=== PATIENT | male | born 1940 | race Caucasian/White ===

== ENCOUNTER 2016-11-13 13:54 | Inpatient (IN) | payer BC, OTHER ==
[~2016-11-13] VITALS: Ht 170.2 cm; Wt 57.0 kg
[~2016-11-13 13:54] MED LIST: ALEN70TA2 PO; DONE10TA12 PO
[2016-11-13] MEDS ORDERED: SODIUM CHLORIDE 0.9% 1000ML 1,000 ML IV STA (14:04)
--- NOTE | 2016-11-13 14:40 | EMERGENCY ROOM VISIT NOTE ---
History Report prepared by Dania: Melo Glass Under the Supervision of: Dr. Solis Greer M.D. First contact with patient: 14:03 Chief Complaint: FALL Stated Complaint: ALTERED MENTAL STATUS History of Present Illness The patient is a 76 year old male who presents to the Emergency Room following a falling episode that occurred at an unknown time. Per the patient's family the patient was last seen behaving at baseline last night. The patient was found laying on the floor early this afternoon and was unresponsive. He has not spoken since the fall, but has been moving his extremities intermittently. Per the patient's family, they noticed a bump on the patient's right forehead and a small amount of blood running down the right side of his head. The patient does have a history of Alzheimer's and has fallen in the past. The patient denies head pain, neck pain, abdominal pain, and extremity pain. However, this review is limited due to the mental status of the patient. Source of History: patient, family History Limited By: AMS Position: other (Global) Quality: other (Fall) Associated Symptoms: No abdominal pain, No headache Note: Patient was found with an injury to the right side of the head. Review of Systems ROS is limited due to the patient's current mental status. Past Medical & Surgical Medical Problems: (1) Alzheimers disease (2) Osteoporosis Family History No pertinent family history secondary to patient age. Social History Smoking Status: Unknown if Ever Smoked Alcohol Use: none Marital Status: Housing Status: lives with significant other Occupation Status: retired Current/Historical Medications Scheduled Atorvastatin (Lipitor), 40 MG PO DAILY Donepezil Hydrochloride (Aricept), 10 MG PO DAILY Gabapentin (Neurontin), 600 MG PO HS Melatonin (Melatonin), 6 MG PO HS Memantine (Namenda), 10 MG PO BID Mirtazapine (Remeron), 45 MG PO HS Omeprazole (Prilosec), 20 MG PO DAILYBB Ranitidine Hcl (Zantac), 300 MG PO BID Risperidone (Risperdal), 0.5 MG PO BID Risperidone (Risperdal), 1 MG PO HS Sertraline (Zoloft), 25 MG PO AT 1600 Sertraline (Zoloft), 50 MG PO QAM Scheduled PRN Lorazepam (Ativan), 0.5-1 MG PO Q6 PRN for Anxiety Meclizine Hcl (Meclizine Hcl), 1 TAB PO TID PRN for Dizziness or Vertigo Allergies Coded Allergies: Trazodone and Nefazodone (Verified Allergy, Unknown, NO REACTION LISTED WITH [facility], 11/13/16) Physical Exam Vital Signs Date Time Temp Pulse Resp B/P Pulse Ox O2 Delivery O2 Flow Rate FiO2 11/13/16 15:25 77 16 111/62 98 Room Air 11/13/16 14:29 96 Room Air 11/13/16 14:28 47 11/13/16 14:00 36.4 50 16 131/63 95 Room Air Physical Exam GENERAL: Patient shows demented sensorium, and paucity of speech. well-appearing , in no distress HENT: There is a hematoma and abrasion to the right scalp. Oropharynx unremarkable. EYES: Pupils are small, 2 cm and reactive to light. Normal conjunctiva. Sclera non-icteric. NECK: Supple. No nuchal rigidity. FROM. No JVD. RESPIRATORY: Clear to auscultation. CARDIAC: Bradycardiac rate, with normal rhythm. Extremities warm and well perfused. Pulses equal. ABDOMEN: Soft, non-distended. No tenderness to palpation. No rebound or guarding. No masses. RECTAL: Deferred. MUSCULOSKELETAL: No pain or tenderness in the extremities. Cog wheel like rigidity in the arms. Chest examination reveals no tenderness. The back is symmetrical on inspection without obvious abnormality. There is no CVA tenderness to palpation. No joint edema. LOWER EXTREMITIES: Calves are equal size bilaterally and non-tender. No edema. No discoloration. NEURO: Normal sensorium. No sensory or motor deficits noted. SKIN: No rash or jaundice noted. Medical Decision & Procedures ER Provider Diagnostic Interpretation: Radiology results as stated below per my review and radiologist interpretation: CT OF THE CERVICAL SPINE WITHOUT CONTRAST CLINICAL HISTORY: Fall. Altered mental status. COMPARISON STUDY: No previous studies for comparison. TECHNIQUE: Helical axial images of the cervical spine were obtained without IV contrast. Sagittal and coronal reconstructions were viewed. FINDINGS: This exam is suboptimal due to difficulty with positioning. There is leftward curvature of the cervical spine with rightward tilt of the head which is likely positional. No acute fracture is identified. Craniocervical junction is intact. Moderate multilevel degenerative disc disease is present with severe multilevel facet arthrosis. There is no prevertebral edema or pneumothorax within visualized portions of the lung apices. IMPRESSION: 1. No acute cervical spine fracture. 2. Study compromised due to difficulty positioning. 3. Moderate multilevel degenerative disc disease and severe multilevel facet arthrosis. Electronically signed by: Frandy Cohen M.D. 11/13/2016 4:01 PM Dictated Date/Time: 11/13/2016 3:57 PM CHEST ONE VIEW PORTABLE CLINICAL HISTORY: Fall. Altered mental status. COMPARISON STUDY: Chest radiograph January 20, 2016. FINDINGS: The patient is rotated. Cardiac size is normal. Mediastinal contours are unremarkable on for patient rotation. Skin folds project over the chest. No pneumothorax or pleural effusion is present. Mild left basilar opacity favors atelectasis. IMPRESSION: No acute cardiopulmonary findings. Electronically signed by: Frandy Cohen M.D. 11/13/2016 2:48 PM Dictated Date/Time: 11/13/2016 2:[address] OF THE HEAD WITHOUT CONTRAST CLINICAL HISTORY: Fall. Weakness. COMPARISON STUDY: Head CT January 20, 2016. TECHNIQUE: Helical axial images of the head were obtained without IV contrast. Automated exposure control was utilized for the study. FINDINGS: No acute intracranial hemorrhage, midline shift or mass effect is present. Ventricular system is stable. Ventricular dilatation is unchanged since exam of January 20, 2016. Basilar cisterns are patent. There are no extra axial collections. There are no findings to suggest acute dural sinus thrombosis or acute territorial infarct. There is no calvarial fracture. IMPRESSION: 1. No acute intracranial findings. Stable ventricular dilatation, likely due to atrophy. Normal pressure hydrocephalus is considered less likely. 2. No calvarial fracture. Electronically signed by: Frandy Cohen M.D. 11/13/2016 3:53 PM Dictated Date/Time: 11/13/2016 3:51 PM Laboratory Results 11/13/16 15:00 Red Blood Count 4.40, Mean Corpuscular Volume 94.3, Mean Corpuscular Hemoglobin 32.0, Mean Corpuscular Hemoglobin Concent 34.0, Mean Platelet Volume 9.8, Neutrophils (%) (Auto) 61.4, Lymphocytes (%) (Auto) 23.0, Monocytes (%) (Auto) 13.9, Eosinophils (%) (Auto) 1.0, Basophils (%) (Auto) 0.4, Neutrophils # (Auto ) 4.90, Lymphocytes # (Auto) 1.83, Monocytes # (Auto) 1.11, Eosinophils # (Auto ) 0.08, Basophils # (Auto) 0.03 11/13/16 15:00 Test 11/13/16 14:25 11/13/16 15:00 11/13/16 15:50 Bedside Glucose 106 mg/dl (70-99) White Blood Count 7.97 K/uL (4.8-10.8) Red Blood Count 4.40 M/uL (4.7-6.1) Hemoglobin 14.1 g/dL (14.0-18.0) Hematocrit 41.5 % (42-52) Mean Corpuscular Volume 94.3 fL (80-100) Mean Corpuscular Hemoglobin 32.0 pg (25-34) Mean Corpuscular Hemoglobin Concent 34.0 g/dl (32-36) Platelet Count 279 K/uL (130-400) Mean Platelet Volume 9.8 fL (7.4-10.4) Neutrophils (%) (Auto) 61.4 % Lymphocytes (%) (Auto) 23.0 % Monocytes (%) (Auto) 13.9 % Eosinophils (%) (Auto) 1.0 % Basophils (%) (Auto) 0.4 % Neutrophils # (Auto) 4.90 K/uL (1.4-6.5) Lymphocytes # (Auto) 1.83 K/uL (1.2-3.4) Monocytes # (Auto) 1.11 K/uL (0.11-0.59) Eosinophils # (Auto) 0.08 K/uL (0-0.5) Basophils # (Auto) 0.03 K/uL (0-0.2) RDW Standard Deviation 47.4 fL (36.4-46.3) RDW Coefficient of Variation 13.7 % (11.5-14.5) Immature Granulocyte % (Auto) 0.3 % Immature Granulocyte # (Auto) 0.02 K/uL (0.00-0.02) Prothrombin Time 12.3 SECONDS (9.0-12.0) Prothromb Time International Ratio 1.1 (0.9-1.1) Activated Partial Thromboplast Time 27.1 SECONDS (21.0-31.0) Partial Thromboplastin Ratio 1.0 Anion Gap 7.0 mmol/L (3-11) Estimated GFR () 97.4 Estimated GFR (Non- 84.0 BUN/Creatinine Ratio 27.3 (10-20) Calcium Level 8.8 mg/dl (8.5-10.1) Magnesium Level 2.3 mg/dl (1.8-2.4) Total Bilirubin 0.7 mg/dl (0.2-1) Direct Bilirubin 0.2 mg/dl (0-0.2) Aspartate Amino Transf (AST/SGOT) 26 U/L (15-37) Alanine Aminotransferase (ALT/SGPT) 40 U/L (12-78) Alkaline Phosphatase 98 U/L (45-117) Total Creatine Kinase 89 U/L (39-308) Creatine Kinase MB 1.3 ng/ml (0.5-3.6) Creatine Kinase MB Ratio 1.5 (0-3.0) Troponin I < 0.015 ng/ml (0-0.045) Total Protein 7.2 gm/dl (6.4-8.2) Albumin 3.4 gm/dl (3.4-5.0) Lipase 244 U/L (73-393) Thyroid Stimulating Hormone (TSH) 2.110 uIu/ml (0.300-4.500) Urine Color YELLOW Urine Appearance CLEAR (CLEAR) Urine pH 6.5 (4.5-7.5) Urine Specific [place] 1.027 (1.000-1.030) Urine Protein NEG (NEG) Urine Glucose (UA) NEG (NEG) Urine Ketones NEG (NEG) Urine Occult Blood NEG (NEG) Urine Nitrite NEG (NEG) Urine Bilirubin NEG (NEG) Urine Urobilinogen NEG (NEG) Urine Leukocyte Esterase NEG (NEG) Urine WBC (Auto) 1-5 /hpf (0-5) Urine RBC (Auto) 0-4 /hpf (0-4) Urine Hyaline Casts (Auto) 0 /lpf (0-5) Urine Epithelial Cells (Auto) >30 /lpf (0-5) Urine Bacteria (Auto) NEG (NEG) Urine Renal Epithelial Cells /lpf (0-5) Laboratory results reviewed by me Medications Administered Medications (Trade) Dose Ordered Sig/Evangelina Route Start Time Stop Time Status Last Admin Dose Admin Sodium Chloride (Nss 1000ml) 1,000 ml @ 125 mls/hr Q8H STAT IV 11/13/16 14:04 11/13/16 22:03 11/13/16 14:04 125 MLS/HR ECG Indication: altered mental status Rate (beats per minute): 49 Rhythm: sinus bradycardia Findings: no acute ischemic change, no ectopy ED Course 1402: The patient was evaluated in room A4. A complete history and physical exam was performed. 1404: Ordered Sodium Chloride 1000 mL @ 125 mL/hr IV. 1621: I reevaluated the patient at this time, he is communicating more at this time. He notes he does have a slight headache where he hit his head. 1627: I discussed the case with Estephania Whitten PA-C, she will evaluate the patient for further treatment. 1628: Ordered Tylenol 1000 mg PO. Medical Decision Prior records/ancillary studies reviewed and summarized above. Nursing notes reviewed and agree them. Additional history obtained from family and caregiver. The patient's history was concerning for altered mental status. Differential diagnosis: Etiologies such as concussion, closed head injury, SDH, IPH, infection, hypoglycemia, electrolyte abnormalities, cardiac sources, intracerebral event, toxicologic, neurologic, as well as others were entertained. Physical examination: As above. GCS 14 ER treatment provided: IV Lock Normal saline hydration. On reassessment the patient was doing slightly better. Mental status improved slightly. Diagnostics interpretation by me: ECG: Sinus bradycardia The labs revealed an unremarkable CBC, chemistry panel, cardiac markers except for mild dehydration. Imaging studies: Chest x-ray and CT scans as above The patient may have a concussion. He is doing relatively well at this time. Consultation will be necessary as the patient will need to be observed. Consultation: A consultation was placed with the hospitalist. The case was discussed and diagnostics were reviewed. The patient was evaluated in the ER for further treatment. The chart was completed utilizing [employer] Speech voice recognition software. Grammatical errors, random word insertions, pronoun errors, and incomplete sentences are an occasional consequence of this system due to software limitations, ambient noise, and hardware issues. Any formal questions or concerns about the content, text, or information contained within the body of this dictation should be directly addressed to the physician for clarification. Consults Time Called: 1621 Consulting Physician: Estephania Whitten PA-C Returned Call: 1627 I discussed the case with Estephania Whitten PA-C, she will evaluate the patient for further treatment. Impression Primary Impression: Altered mental status Additional Impressions: Closed head injury Concussion Scribe Attestation The scribe's documentation has been prepared under my direction and personally reviewed by me in its entirety. I confirm that the note above accurately reflects all work, treatment, procedures, and medical decision making performed by me. Departure Information Dispostion Being Evaluated By Hospitalist Referrals Solis Gloria III, M.D. (PCP) Patient Instructions [facility] Problem Qualifiers
--- NOTE | 2016-11-13 14:50 | DIAGNOSTIC IMAGING REPORT ---
CHEST ONE VIEW PORTABLE CLINICAL HISTORY: Fall. Altered mental status. COMPARISON STUDY: Chest radiograph January 20, 2016. FINDINGS: The patient is rotated. Cardiac size is normal. Mediastinal contours are unremarkable on for patient rotation. Skin folds project over the chest. No pneumothorax or pleural effusion is present. Mild left basilar opacity favors atelectasis. IMPRESSION: No acute cardiopulmonary findings. Electronically signed by: Frandy Cohen M.D. 11/13/2016 2:48 PM Dictated Date/Time: 11/13/2016 2:47 PM
[2016-11-13] MEDS ORDERED: LORA-741 PO (15:03)
[2016-11-13] MEDS ORDERED: MELA3TAB12 (15:03)
[2016-11-13] MEDS ORDERED: GABA-113 PO (15:03)
[2016-11-13] MEDS ORDERED: RISP0.5T10 PO (15:03)
[2016-11-13] MEDS ORDERED: MECL1TAB42 PO (15:03)
[2016-11-13 15:13] LABS: BASO % 0.4 %; BASO ABS # 0.03 K/uL (0-0.2); COMPLETE YES; HEMATOCRIT 41.5 % (42-52); IG% 0.3 %; LYMPH ABS # 1.83 K/uL (1.2-3.4); MEAN CELL VOLUME 94.3 fL (80-100); MEAN PLATELET VOLUME 9.8 fL (7.4-10.4); MONO % 13.9 %; NEUT % 61.4 %; PLATELET COUNT 279 K/uL (130-400); WHITE BLOOD COUNT 7.97 K/uL (4.8-10.8)
[2016-11-13 15:24] LABS: INR 1.1 (0.9-1.1); PROTHROMBIN TIME (PATIENT) 12.3 SECONDS (9.0-12.0)
[2016-11-13] MEDS ORDERED: RISP1TAB18 PO (15:24)
[2016-11-13 15:33] LABS: ALT/SGPT 40 U/L (12-78); AST/SGOT 26 U/L (15-37); BLOOD UREA NITROGEN 24 mg/dl (7-18); BUN/CREATININE RATIO 27.3 (10-20); CALCIUM 8.8 mg/dl (8.5-10.1); CARBON DIOXIDE 31 mmol/L (21-32); CHLORIDE 104 mmol/L (98-107); CREATININE 0.88 mg/dl (0.60-1.40); GLUCOSE 98 mg/dl (70-99); MAGNESIUM 2.3 mg/dl (1.8-2.4); POTASSIUM 4.2 mmol/L (3.5-5.1); SODIUM 142 mmol/L (136-145)
[2016-11-13 15:41] LABS: ALKALINE PHOSPHATASE 98 U/L (45-117); CKMB/CK RATIO 1.5 (0-3.0)
--- NOTE | 2016-11-13 15:55 | DIAGNOSTIC IMAGING REPORT ---
CT OF THE HEAD WITHOUT CONTRAST CLINICAL HISTORY: Fall. Weakness. COMPARISON STUDY: Head CT January 20, 2016. TECHNIQUE: Helical axial images of the head were obtained without IV contrast. Automated exposure control was utilized for the study. FINDINGS: No acute intracranial hemorrhage, midline shift or mass effect is present. Ventricular system is stable. Ventricular dilatation is unchanged since exam of January 20, 2016. Basilar cisterns are patent. There are no extra axial collections. There are no findings to suggest acute dural sinus thrombosis or acute territorial infarct. There is no calvarial fracture. IMPRESSION: 1. No acute intracranial findings. Stable ventricular dilatation, likely due to atrophy. Normal pressure hydrocephalus is considered less likely. 2. No calvarial fracture. Electronically signed by: Frandy Cohen M.D. 11/13/2016 3:53 PM Dictated Date/Time: 11/13/2016 3:51 PM
--- NOTE | 2016-11-13 16:02 | DIAGNOSTIC IMAGING REPORT ---
CT OF THE CERVICAL SPINE WITHOUT CONTRAST CLINICAL HISTORY: Fall. Altered mental status. COMPARISON STUDY: No previous studies for comparison. TECHNIQUE: Helical axial images of the cervical spine were obtained without IV contrast. Sagittal and coronal reconstructions were viewed. FINDINGS: This exam is suboptimal due to difficulty with positioning. There is leftward curvature of the cervical spine with rightward tilt of the head which is likely positional. No acute fracture is identified. Craniocervical junction is intact. Moderate multilevel degenerative disc disease is present with severe multilevel facet arthrosis. There is no prevertebral edema or pneumothorax within visualized portions of the lung apices. IMPRESSION: 1. No acute cervical spine fracture. 2. Study compromised due to difficulty positioning. 3. Moderate multilevel degenerative disc disease and severe multilevel facet arthrosis. Electronically signed by: Frandy Cohen M.D. 11/13/2016 4:01 PM Dictated Date/Time: 11/13/2016 3:57 PM
[2016-11-13 16:04] LABS: URINE APPEARANCE CLEAR (CLEAR); URINE BILIRUBIN NEG (NEG); URINE COLOR YELLOW; URINE EPITHELIAL CELL AUTO >30 /lpf (0-5); URINE NITRITE NEG (NEG); URINE PH 6.5 (4.5-7.5); URINE SPECIFIC GRAVITY 1.027 (1.000-1.030); UROBILINOGEN NEG (NEG); ZZURINE CULT IF INDIC CATH NO
[2016-11-13 16:19] LABS: MANUAL MICROSCOPIC REQUIRED? NO; REVIEW REQ? YES
[2016-11-13] MEDS ORDERED: ACETAMINOPHEN 500 MG TAB PO STA (16:28)
[2016-11-13] MEDS ORDERED: ONDANSETRON INJ 2 MG/ML 2 ML VIAL IV PRN (17:15)
[2016-11-13] MEDS ORDERED: ACETAMINOPHEN 325 MG TAB PO PRN (17:15)
[2016-11-13] MEDS ORDERED: MECLIZINE HCL 12.5 MG TAB PO PRN (17:30)
--- NOTE | 2016-11-13 17:35 | History and Physical ---
History & Physical Date & Time of Service: Nov 13, 2016 at 17:19 Chief Complaint: Altered Mental Status Primary Care Physician: Solis Gloria III, M.D. History of Present Illness Source: patient, family, clinic records, hospital records Patient seen and examined. 76 year old male with PMHx of Dementia, GERD, HLD presents to the ED with AMS since this morning. Patient lives at home with his and a gericare aide. reports that the patient was found on the floor this morning in his bedroom. They were unsure how long he had been there. At that time the patient was very lethargic and somewhat unresponsive. He would not speak. They noticed dried blood on his head so EMS was called and he was brought to the ED for further evaluation. The patient has a history of multiple falls. At baseline he is pleasantly confused but has some anxiety. He answers most questions yes and no but does have some conversations with people close to him. Family denies any recent fevers, chills, vomiting, diarrhea. Patient is incontinent at baseline. Family keeps patient's medications locked up. In the ED VS were stable, CBC, CMP, Danni were unremarkable, CT head C-spine was negative for acute changes. CXR and UA were stable. He received gentle IVFs. He has become more alert and per family is close to baseline. He will be observed for further workup and treatment. Past Medical/Surgical History Medical Problems: (1) Alzheimers disease Status: Chronic (2) GERD (gastroesophageal reflux disease) Status: Chronic (3) HLD (hyperlipidemia) Status: Chronic (4) Osteoporosis Status: Chronic Surgical Problems: (1) History of appendectomy Status: Chronic Family History FH: heart disease Social History Smoking Status: Never Smoker Alcohol Use: none Marital Status: Housing status: lives with family Occupational Status: retired Multi-Drug Resistant Organisms History of MDRO: No Allergies Coded Allergies: Trazodone and Nefazodone (Verified Allergy, Unknown, NO REACTION LISTED WITH [facility] [place], 11/13/16) Home Medications Scheduled Atorvastatin (Lipitor), 40 MG PO DAILY Donepezil Hydrochloride (Aricept), 10 MG PO DAILY Gabapentin (Neurontin), 600 MG PO HS Melatonin (Melatonin), 6 MG PO HS Memantine (Namenda), 10 MG PO BID Mirtazapine (Remeron), 45 MG PO HS Omeprazole (Prilosec), 20 MG PO DAILYBB Ranitidine Hcl (Zantac), 300 MG PO BID Risperidone (Risperdal), 0.5 MG PO BID Risperidone (Risperdal), 1 MG PO HS Sertraline (Zoloft), 25 MG PO AT 1600 Sertraline (Zoloft), 50 MG PO QAM Scheduled PRN Lorazepam (Ativan), 0.5-1 MG PO Q6 PRN for Anxiety Meclizine Hcl (Meclizine Hcl), 1 TAB PO TID PRN for Dizziness or Vertigo Review of Systems Unable to assess d/t mental status Physical Exam Vital Signs Date Time Temp Pulse Resp B/P Pulse Ox O2 Delivery O2 Flow Rate FiO2 11/13/16 16:48 87 138/67 11/13/16 15:25 77 16 111/62 98 Room Air 11/13/16 14:29 96 Room Air 11/13/16 14:28 47 11/13/16 14:00 36.4 50 16 131/63 95 Room Air General Appearance: + pertinent finding (WD/WN 76 year old male lying in bed in NAD with family at bedside ) Head: normocephalic, + evidence of trama (abrasion right parietal area ) Eyes: PERRL, sclerae normal ENT: hearing grossly normal, pharynx normal Neck: supple, no JVD Respiratory/Chest: chest non-tender, lungs clear, normal breath sounds, no respiratory distress, no accessory muscle use Cardiovascular: regular rate, rhythm, no edema, no gallop, no JVD, no murmur, normal peripheral pulses Abdomen/GI: normal bowel sounds, non tender, soft Extremities/Musculoskelatal: no calf tenderness, normal capillary refill, no pedal edema Neurologic/Psych: + pertinent finding (Alert, disoriented, answers some questions yes and no otherwise did not speak, did not follow commands but spontaneously moved all extremities appropriately ) Skin: normal color, warm/dry, no rash Lymphatic: no adenopathy Diagnostics Laboratory Results Results Past 24 Hours Test 11/13/16 14:25 11/13/16 15:00 11/13/16 15:50 Range/Units Bedside Glucose 106 70-99 mg/dl White Blood Count 7.97 4.8-10.8 K/uL Red Blood Count 4.40 4.7-6.1 M/uL Hemoglobin 14.1 14.0-18.0 g/dL Hematocrit 41.5 42-52 % Mean Corpuscular Volume 94.3 80-100 fL Mean Corpuscular Hemoglobin 32.0 25-34 pg Mean Corpuscular Hemoglobin Concent 34.0 32-36 g/dl Platelet Count 279 130-400 K/uL Mean Platelet Volume 9.8 7.4-10.4 fL Neutrophils (%) (Auto) 61.4 % Lymphocytes (%) (Auto) 23.0 % Monocytes (%) (Auto) 13.9 % Eosinophils (%) (Auto) 1.0 % Basophils (%) (Auto) 0.4 % Neutrophils # (Auto) 4.90 1.4-6.5 K/uL Lymphocytes # (Auto) 1.83 1.2-3.4 K/uL Monocytes # (Auto) 1.11 0.11-0.59 K/uL Eosinophils # (Auto) 0.08 0-0.5 K/uL Basophils # (Auto) 0.03 0-0.2 K/uL RDW Standard Deviation 47.4 36.4-46.3 fL RDW Coefficient of Variation 13.7 11.5-14.5 % Immature Granulocyte % (Auto) 0.3 % Immature Granulocyte # (Auto) 0.02 0.00-0.02 K/uL Prothrombin Time 12.3 9.0-12.0 SECONDS Prothromb Time International Ratio 1.1 0.9-1.1 Activated Partial Thromboplast Time 27.1 21.0-31.0 SECONDS Partial Thromboplastin Ratio 1.0 Sodium Level 142 136-145 mmol/L Potassium Level 4.2 3.5-5.1 mmol/L Chloride Level 104 98-107 mmol/L Carbon Dioxide Level 31 21-32 mmol/L Anion Gap 7.0 3-11 mmol/L Blood Urea Nitrogen 24 7-18 mg/dl Creatinine 0.88 0.60-1.40 mg/dl Estimated GFR () 97.4 Estimated GFR (Non- 84.0 BUN/Creatinine Ratio 27.3 10-20 Random Glucose 98 70-99 mg/dl Calcium Level 8.8 8.5-10.1 mg/dl Magnesium Level 2.3 1.8-2.4 mg/dl Total Bilirubin 0.7 0.2-1 mg/dl Direct Bilirubin 0.2 0-0.2 mg/dl Aspartate Amino Transf (AST/SGOT) 26 15-37 U/L Alanine Aminotransferase (ALT/SGPT) 40 12-78 U/L Alkaline Phosphatase 98 45-117 U/L Total Creatine Kinase 89 39-308 U/L Creatine Kinase MB 1.3 0.5-3.6 ng/ml Creatine Kinase MB Ratio 1.5 0-3.0 Troponin I < 0.015 0-0.045 ng/ml Total Protein 7.2 6.4-8.2 gm/dl Albumin 3.4 3.4-5.0 gm/dl Lipase 244 73-393 U/L Thyroid Stimulating Hormone (TSH) 2.110 0.300-4.500 uIu/ml Urine Color YELLOW Urine Appearance CLEAR CLEAR Urine pH 6.5 4.5-7.5 Urine Specific [place] 1.027 1.000-1.030 Urine Protein NEG NEG Urine Glucose (UA) NEG NEG Urine Ketones NEG NEG Urine Occult Blood NEG NEG Urine Nitrite NEG NEG Urine Bilirubin NEG NEG Urine Urobilinogen NEG NEG Urine Leukocyte Esterase NEG NEG Urine WBC (Auto) 1-5 0-5 /hpf Urine RBC (Auto) 0-4 0-4 /hpf Urine Hyaline Casts (Auto) 0 0-5 /lpf Urine Epithelial Cells (Auto) >30 0-5 /lpf Urine Bacteria (Auto) NEG NEG Urine Renal Epithelial Cells 0-5 /lpf Diagnostic Radiology C-SPINE CT Per radiologist read: IMPRESSION: 1. No acute cervical spine fracture. 2. Study compromised due to difficulty positioning. 3. Moderate multilevel degenerative disc disease and severe multilevel facet arthrosis. CT HEAD Per radiologist read: IMPRESSION: 1. No acute intracranial findings. Stable ventricular dilatation, likely due to atrophy. Normal pressure hydrocephalus is considered less likely. 2. No calvarial fracture. CXR Per radiologist read: IMPRESSION: No acute cardiopulmonary findings EKG Sinus Justo 49 BPM, QTc 422, LAD Impression Assessment and Plan 76 year old male with dementia presents to the ED following unwitnessed fall. Unknown duration of time on floor. Workup in ED negative ALTERED MENTAL STATUS, HEAD TRAUMA -Observation in tele -Following unwitnessed fall -CT head negative, no signs of infection, Danni negative, no leukocytosis, electrolyte abnormalities -? secondary to concussion from fall, versus altered mental status causing patient's fall - Serial Danni, EKGs -check Echo -monitor in tele for arrhythmia - EKG noted to be bradycardia -Neuro checks q4h -Will repeat CT head in AM to r/o occult bleed UNWITNESSED FALL -history of multiple falls -Fall precautions, bed alarm -Gentle IVF hydration -Vacuum Tester Cans consult for discharge planning -PT/OT Eval DEMENTIA/Anxiety -On multiple medications, Zoloft, Risperdal, Aricept, Namenda, Ativan, Remeron -will continue for now, side effects may be leading to patient's frequent falls. -Fall precautions, bed alarm GERD -continue PPI, [id number] HLD -continue Statin DVT PROPHYLAXIS: SCDs RE: head trauma DISPO:observation pending further workup Patient seen in collaboration with Dr. Walls Agree with above H and P.Briefly 76M with severe dementia with word finding difficulty and not much verbsal as per and hx of frequent falls was found on the floor at home. He was somewhat unresponsive when found him and also some blood on the head and was brought to Er.Received a dose of Ativan in Er as he was somewhat combative as per . Currently sleeping, tries to open eyes on asking but not talking.Hemodynamics stable.Afebrile. As per patient ambulates without help at home and appetite is ok. No recent fevers or cough. p/e Ge drowsy. Opens eyes on calling [facility] s1 and s2 heard no murmurs Rs cta b/l no added sounds Abd benign Title I Assistant drowsy Ext no edema no erythema a/p AMS s/p fall ct head unremarkable concussion? repeat ct head in am labs unremarkable no signs of infection pt/ot when more awake Bradycardia stopped Aricept concerned about stopping it consulted neurology Severe dementia on Namenda stooped Aricept await neuro recommendations VTE Prophylaxis VTE Risk Assessment Done? Y/N: Yes Risk Level: Moderate
[2016-11-13] MEDS ORDERED: LORAZEPAM 0.5 MG TAB ONE (17:43)
[2016-11-13] MEDS ORDERED: NMN10 PO (19:17)
[2016-11-13] MEDS ORDERED: MIRT45TA PO (19:17)
[2016-11-13] MEDS ORDERED: SERT50TA PO (19:17)
[2016-11-13] MEDS ORDERED: SERT25TA PO (19:17)
[2016-11-13] MEDS ORDERED: ATOR-24 PO (19:18)
[2016-11-13] MEDS ORDERED: RANI300T2 PO (19:18)
[2016-11-13] MEDS ORDERED: PRLSR20 PO (19:29)
[2016-11-13 19:39] VITALS: BP 104/61; PULSE 57; TEMP 36.4; O2SAT 95; Ht 170.2 cm; Wt 57.0 kg
[2016-11-13] MEDS ORDERED: MELA3TAB PO (19:41)
[2016-11-13] MEDS: SODIUM CHLORIDE 0.9% 1000ML 1,000 ML IV SCH (20:17)
[2016-11-13] MEDS: GABAPENTIN 300 MG CAP PO SCH (20:50)
[2016-11-13] MEDS: RANITIDINE HCL 150 MG TAB PO SCH (20:51)
[2016-11-13] MEDS: MEMANTINE 10 MG TAB PO SCH (20:51)
[2016-11-13] MEDS ORDERED: MIRTAZAPINE TAB 15 MG TAB PO SCH (21:00)
[2016-11-13] MEDS ORDERED: NON-FORMULARY MEDICATION (Melatonin 6 MG) PO SCH (21:00)
[2016-11-13] MEDS ORDERED: RISPERIDONE 1 MG TAB PO SCH (21:00)
[2016-11-13 21:39] LABS: CKMB/CK RATIO 1.4 (0-3.0)
[2016-11-13 23:41] VITALS: BP 121/56; PULSE 57; TEMP 36.6; O2SAT 95
[2016-11-14] VITALS (10 sets, daily range): BP systolic 96–117; BP diastolic 56–73; PULSE 51–86; TEMP 36.3–37; O2SAT 93–98
[2016-11-14] MEDS ORDERED: IV FLUIDS COMPLETED PRN (01:00)
[2016-11-14 03:13] LABS: MEAN CELL VOLUME 94.3 fL (80-100); MEAN CORPUSCULAR HGB CONC 32.9 g/dl (32-36); MEAN PLATELET VOLUME 9.3 fL (7.4-10.4); PLATELET COUNT 250 K/uL (130-400); RED BLOOD COUNT 3.71 M/uL (4.7-6.1); WHITE BLOOD COUNT 7.25 K/uL (4.8-10.8)
[2016-11-14 03:36] LABS: BLOOD UREA NITROGEN 20 mg/dl (7-18); BUN/CREATININE RATIO 24.5 (10-20); CARBON DIOXIDE 27 mmol/L (21-32); CHLORIDE 108 mmol/L (98-107); CREATININE 0.82 mg/dl (0.60-1.40); GLUCOSE 84 mg/dl (70-99); MAGNESIUM 2.1 mg/dl (1.8-2.4); SODIUM 144 mmol/L (136-145)
[2016-11-14 03:41] LABS: CKMB/CK RATIO 1.5 (0-3.0)
[2016-11-14] MEDS: PANTOprazole SOD 40 MG TAB PO SCH (05:33)
[2016-11-14] MEDS: SODIUM CHLORIDE 0.9% 1000ML 1,000 ML IV SCH ×2 (05:33→20:17)
[2016-11-14] MEDS ORDERED: DONEPEZIL HCL 10 MG TAB PO SCH (09:00)
--- NOTE | 2016-11-14 09:13 | DIAGNOSTIC IMAGING REPORT ---
CT HEAD WITHOUT CONTRAST (CT) CLINICAL HISTORY: Head trauma ACUTE CHANGE IN MENTAL STATUS. FOLLOW-UP EXAMINATION. COMPARISON STUDY: 11/13/2016 TECHNIQUE: Axial CT of the brain is performed from the vertex to the skull base. IV contrast was not administered for this examination. CT DOSE: 614.27 mGy.cm FINDINGS: No intra or extra-axial mass lesions are visualized. There is no CT evidence of acute cortical infarction. There is no evidence of midline shift. There is no acute hemorrhage. No calvarial fractures are visualized. There are patchy white matter hypodensities likely on a small vessel basis. There is mild ventricular dilatation, likely secondary to volume loss. There is no evidence of acute sinusitis IMPRESSION: No acute intracranial findings Electronically signed by: Moreno Jimenez M.D. 11/14/2016 9:12 AM Dictated Date/Time: 11/14/2016 9:10 AM
--- NOTE | 2016-11-14 09:15 | ECHOCARDIOGRAM REPORT ---
*NOTICE TO RECEIVING LIBERTARIAN AGENCY This information is strictly Confidential and protected under [place] law. [place] law prohibits you from making any further disclosure of this information unless further disclosure is expressly permitted by the written consent of the person to whom it pertains or is authorized by law. A general authorization for the release of medical or other information is not sufficient for this purpose. Hospital accepts no responsibility if the information is made available to any other person, INCLUDING THE PATIENT. Interpretation Summary * Name: ALLY BARAKAT Study Date: 11/14/2016 07:17 AM BP: 115/72 mmHg * Patient Location: [facility] HR: 50 * : 1940 (M/d/yyyy) Gender: Male * Age: 76 yrs Ethnicity: CA Weight: 122 lb * Ordering Physician: AJAY WAHL PA-C * Performed By: Sheryl Khalil RCS * * Reason For Study: ALT OF CONSCIOUSNESS * -- Conclusions -- * No significant vavular pathology. * The left ventricle is normal in size. * Left ventricular systolic function is normal. * Ejection Fraction = 55-60%. * The right ventricular systolic function is normal. * The left atrial size is normal. * Right atrial size is normal. Procedure Details * A complete two-dimensional transthoracic echocardiogram was performed (2D, M-mode, Doppler and color flow Doppler). Left Ventricle * The left ventricle is normal in size. * There is normal left ventricular wall thickness. * Ejection Fraction = 55-60%. * Left ventricular systolic function is normal. * The left ventricular wall motion is normal. Right Ventricle * The right ventricle is normal size. * The right ventricular systolic function is normal. Atria * The left atrial size is normal. * Right atrial size is normal. * The interatrial septum is intact with no evidence for an atrial septal defect. Mitral Valve * The mitral valve anatomy is normal. * Significant mitral regurgitation is absent. Tricuspid Valve * The tricuspid valve anatomy is normal. * No tricuspid regurgitation. Aortic Valve * The aortic valve is tricuspid. The leaflet thickness if normal. There is no aortic stenosis, and no significant insufficiency. * Aortic stenosis is absent. * There is no significant aortic regurgitation. Pulmonic Valve * The pulmonic valve is not well visualized. * There is no significant pulmonary regurgitation. Great Vessels * The aortic root and proximal ascending aorta are normal sized. Pericardium/Pleural * There is no pericardial effusion. MMode 2D Measurements and Calculations IVSd 1.1 cm IVSs 1.3 cm LVIDd 3.9 cm LVIDs 2.8 cm LVPWd 1.2 cm LVPWs 1.2 cm IVS/LVPW 0.92 FS 28.2 % EDV(Teich) 66.5 ml ESV(Teich) 29.8 ml EF(Teich) 55.1 % EDV(cubed) 59.9 ml ESV(cubed) 22.2 ml EF(cubed) 63.0 % % IVS thick 17.0 % % LVPW thick -0.76 % LV mass(C)d 152.1 grams LV mass(C)s 106.7 grams SV(Teich) 36.6 ml SV(cubed) 37.7 ml Ao root diam 4.3 cm Ao root area 14.5 cm\S\2 ACS 2.4 cm LA dimension 3.0 cm LA/Ao 0.71 LVOT diam 1.9 cm LVOT area 2.9 cm\S\2 LVAd ap4 21.0 cm\S\2 LVLd ap4 6.2 cm EDV(MOD-sp4) 60.7 ml EDV(sp4-el) 60.4 ml LVAs ap4 13.8 cm\S\2 LVLs ap4 5.8 cm ESV(MOD-sp4) 27.6 ml ESV(sp4-el) 27.7 ml EF(MOD-sp4) 54.5 % EF(sp4-el) 54.1 % LVAd ap2 25.0 cm\S\2 LVLd ap2 7.6 cm EDV(MOD-sp2) 67.6 ml EDV(sp2-el) 69.9 ml LVAs ap2 15.3 cm\S\2 LVLs ap2 6.5 cm ESV(MOD-sp2) 29.8 ml ESV(sp2-el) 30.5 ml EF(MOD-sp2) 55.9 % EF(sp2-el) 56.3 % LVLd %diff 18.0 % EDV(MOD-bp) 70.4 ml LVLs %diff 11.4 % ESV(MOD-bp) 30.2 ml EF(MOD-bp) 57.1 % SV(MOD-sp4) 33.1 ml SV(MOD-sp2) 37.8 ml SV(MOD-bp) 40.2 ml SV(sp4-el) 32.7 ml SV(sp2-el) 39.3 ml Doppler Measurements and Calculations MV E max jasen 65.8 cm/sec MV A max jasen 76.6 cm/sec MV E/A 0.86 MV P1/2t max jasen 137.7 cm/sec MV P1/2t 364.6 msec MVA(P1/2t) 0.60 cm\S\2 MV dec slope 110.6 cm/sec\S\2 Ao V2 max 74.9 cm/sec Ao max PG 2.2 mmHg Ao max PG (full) 0.31 mmHg APOORVA(V,A) 2.7 cm\S\2 APOORVA(V,D) 2.7 cm\S\2 LV V1 max PG 1.9 mmHg LV V1 max 69.6 cm/sec PA V2 max 87.1 cm/sec PA max PG 3.0 mmHg
[2016-11-14] MEDS: SERTRALINE HCL 50 MG TAB PO SCH ×2 (09:33→16:00)
[2016-11-14] MEDS: RISPERIDONE 0.5 MG TAB PO SCH ×2 (09:33→14:00)
[2016-11-14] MEDS: RANITIDINE HCL 150 MG TAB PO SCH ×2 (09:33→20:18)
[2016-11-14] MEDS: ATORVASTATIN 40 MG TAB PO SCH (09:33)
[2016-11-14] MEDS: MEMANTINE 10 MG TAB PO SCH ×2 (09:33→20:17)
--- NOTE | 2016-11-14 15:00 | Neurology Consultation ---
Neurology Consultation Date of Consultation: November 14, 2016. Attending Physician: Armen Walls MD Primary Care Physician: Solis Gloria III, M.D. Reason for Consultation: severe dementia will cardia History of Present Illness Source: patient, spouse Casey is a 76 year old male with PMH of Dementia, GERD, HLD presents after a fall this am. He lives at home with his and a pulmonary care nurse. states he was found on the floor this morning in his bedroom by the caregiver. They were unsure how long he was down and he was very lethargic and somewhat unresponsive. He would not speak. They noticed dried blood on his head so EMS was called and he was brought to the ED for further evaluation. He has had multiple falls his baseline is pleasantly confused but has some anxiety. He answers most questions yes and no but does have some conversations with people close to him. He has not had any fevers, chills, vomiting, diarrhea. he has been incontinent at baseline. His states she has been taking care of him for 7 years and 1 year ago she had a caregiver in the home to help her with care. He was given IV fluids in the ED and he became more alert. He is getting out of bed with the help of PT but he is not doing much to help with the transfer to the wheel chair. His states there was discussion regarding stopping the Aricept due to the will cardia and she seems to understand. Past Medical/Surgical History Medical Problems: (1) Altered mental status Status: Acute (2) Closed head injury Status: Acute (3) Concussion Status: Acute (4) Vertigo Status: Acute Social History Alcohol Use: none Marital Status: Housing Status: lives with significant other Occupation Status: retired Allergies Coded Allergies: Trazodone and Nefazodone (Verified Allergy, Unknown, NO REACTION LISTED WITH [facility] [place], 11/13/16) Current Inpatient Medications Current Inpatient Medications Medications (Trade) Dose Ordered Sig/Evangelina Route Start Time Stop Time Status Last Admin Dose Admin Sodium Chloride (Nss 1000ml) 1,000 ml @ 75 mls/hr [id number] IV 11/13/16 17:11 12/13/16 17:10 11/14/16 05:33 75 MLS/HR Acetaminophen (Tylenol Tab) 650 mg Q4H PRN PO 11/13/16 17:15 12/13/16 17:14 Ondansetron HCl (Zofran Inj) 4 mg Q6H PRN IV 11/13/16 17:15 12/13/16 17:14 Atorvastatin Calcium (Lipitor Tab) 40 mg DAILY PO 11/14/16 09:00 12/14/16 08:59 11/14/16 09:33 40 MG Gabapentin (Neurontin Cap) 600 mg HS PO 11/13/16 21:00 12/13/16 20:59 11/13/16 20:50 600 MG Lorazepam (Ativan Tab) 0.5 mg Q6 PRN PO 11/13/16 17:30 12/13/16 17:29 Meclizine HCl (Antivert Tab) 25 mg TID PRN PO 11/13/16 17:30 12/13/16 17:29 Memantine (Namenda Tab) 10 mg BID PO 11/13/16 21:00 12/13/16 20:59 11/14/16 09:33 10 MG Ranitidine HCl (zANTac TAB) 300 mg BID PO 11/13/16 21:00 12/13/16 20:59 11/14/16 09:33 300 MG Risperidone (Risperdal Tab) 0.5 mg BID@0900,1400 PO 11/14/16 09:00 12/14/16 08:59 11/14/16 09:33 0.5 MG Risperidone (Risperdal Tab) 1 mg HS PO 11/13/16 21:00 12/13/16 20:59 11/13/16 20:51 1 MG Sertraline HCl (Zoloft Tab) 25 mg DAILY@1600 PO 11/14/16 16:00 12/14/16 15:59 Sertraline HCl (Zoloft Tab) 50 mg QAM PO 11/14/16 09:00 12/14/16 08:59 11/14/16 09:33 50 MG Mirtazapine (Remeron Tab) 45 mg HS PO 11/13/16 21:00 12/13/16 20:59 11/13/16 20:51 45 MG Pantoprazole Sodium (Protonix Tab) 40 mg DAILYBB PO 11/14/16 06:30 12/14/16 06:59 11/14/16 05:33 40 MG Miscellaneous (Iv Fluids Completed) 1 ea PRN PRN N/A 11/14/16 01:00 11/14/17 00:59 Physical Exam Vital Signs (Past 24 Hrs): Date Time Temp Pulse Resp B/P Pulse Ox O2 Delivery O2 Flow Rate FiO2 11/14/16 12:00 Room Air 11/14/16 11:40 36.7 51 16 113/63 95 Room Air 11/14/16 08:00 Room Air 11/14/16 07:24 36.8 51 18 115/72 94 Room Air 11/14/16 04:23 36.9 62 18 96/56 93 Room Air 11/14/16 04:00 95 Room Air 11/14/16 00:00 95 Room Air 11/13/16 23:41 36.6 57 18 121/56 95 Room Air 11/13/16 19:39 36.4 57 16 104/61 95 Room Air 11/13/16 18:15 66 18 138/97 94 Room Air 11/13/16 16:48 87 138/67 11/13/16 15:25 77 16 111/62 98 Room Air Physical Exam: Constitutional:, appearance nourished, flat affect, answers questions with yes no Ears, Nose, Mouth and Throat: mucous membranes moist, no injection and skin normal, eyes normal Cardiovascular: normal S-1 and S-2 and regular rate and rhythm Respiratory: clear to auscultation (CTA) and no rales, rhonchi or wheeze Musculoskeletal: no peripheral edema and good distal pulses Skin: large sacral ulcer with Tegaderm applied Eyes: extraocular muscles intact (EOMI) and pupils equal, round and reactive to light (PERRL) NEUROLOGIC EXAMINATION: Mental status: Alert minimally interactive but smile at when he talks to her Oriented to person, but does not know where he is Speech fluent with no evidence of aphasia Cranial Nerves smiles facial symmetry does not stick out tongue with command Reflexes: Deep tendon reflexes were symmetrical and graded 2/5. Coordination: does not cooperate with exam or follow commands Gait/Stance: Posture sitting in bed and then stands with PT assistance transfers to chair with 1 person assistance. Strength: does not cooperate with strength exam Laboratory Results Past 24 Hours: 11/14/16 03:06 11/14/16 03:06 Test 11/13/16 15:00 11/13/16 15:50 11/14/16 03:06 Immature Granulocyte % (Auto) 0.3 % White Blood Count 7.97 K/uL (4.8-10.8) Red Blood Count 4.40 M/uL (4.7-6.1) 3.71 M/uL (4.7-6.1) Hemoglobin 14.1 g/dL (14.0-18.0) Hematocrit 41.5 % (42-52) Mean Corpuscular Volume 94.3 fL (80-100) 94.3 fL (80-100) Mean Corpuscular Hemoglobin 32.0 pg (25-34) 31.0 pg (25-34) Mean Corpuscular Hemoglobin Concent 34.0 g/dl (32-36) 32.9 g/dl (32-36) Platelet Count 279 K/uL (130-400) Mean Platelet Volume 9.8 fL (7.4-10.4) 9.3 fL (7.4-10.4) Neutrophils (%) (Auto) 61.4 % Lymphocytes (%) (Auto) 23.0 % Monocytes (%) (Auto) 13.9 % Eosinophils (%) (Auto) 1.0 % Basophils (%) (Auto) 0.4 % Neutrophils # (Auto) 4.90 K/uL (1.4-6.5) Lymphocytes # (Auto) 1.83 K/uL (1.2-3.4) Monocytes # (Auto) 1.11 K/uL (0.11-0.59) Eosinophils # (Auto) 0.08 K/uL (0-0.5) Basophils # (Auto) 0.03 K/uL (0-0.2) Immature Granulocyte # (Auto) 0.02 K/uL (0.00-0.02) Prothrombin Time 12.3 SECONDS (9.0-12.0) Prothromb Time International Ratio 1.1 (0.9-1.1) Activated Partial Thromboplast Time 27.1 SECONDS (21.0-31.0) Partial Thromboplastin Ratio 1.0 Total Bilirubin 0.7 mg/dl (0.2-1) Direct Bilirubin 0.2 mg/dl (0-0.2) Aspartate Amino Transf (AST/SGOT) 26 U/L (15-37) Alanine Aminotransferase (ALT/SGPT) 40 U/L (12-78) Alkaline Phosphatase 98 U/L (45-117) Total Protein 7.2 gm/dl (6.4-8.2) Albumin 3.4 gm/dl (3.4-5.0) Lipase 244 U/L (73-393) Thyroid Stimulating Hormone (TSH) 2.110 uIu/ml (0.300-4.500) Urine Color YELLOW Urine Appearance CLEAR (CLEAR) Urine pH 6.5 (4.5-7.5) Urine Specific [place] 1.027 (1.000-1.030) Urine Protein NEG (NEG) Urine Glucose (UA) NEG (NEG) Urine Ketones NEG (NEG) Urine Occult Blood NEG (NEG) Urine Nitrite NEG (NEG) Urine Bilirubin NEG (NEG) Urine Urobilinogen NEG (NEG) Urine Leukocyte Esterase NEG (NEG) Urine WBC (Auto) 1-5 /hpf (0-5) Urine RBC (Auto) 0-4 /hpf (0-4) Urine Hyaline Casts (Auto) 0 /lpf (0-5) Urine Epithelial Cells (Auto) >30 /lpf (0-5) Urine Bacteria (Auto) NEG (NEG) Urine Renal Epithelial Cells /lpf (0-5) RDW Standard Deviation 47.6 fL (36.4-46.3) RDW Coefficient of Variation 13.7 % (11.5-14.5) Anion Gap 9.0 mmol/L (3-11) Est Creatinine Clear Calc Drug Dose 61.0 ml/min Estimated GFR () 100.3 Estimated GFR (Non- 86.5 BUN/Creatinine Ratio 24.5 (10-20) Calcium Level 8.0 mg/dl (8.5-10.1) Magnesium Level 2.1 mg/dl (1.8-2.4) Total Creatine Kinase 67 U/L (39-308) Creatine Kinase MB 1.0 ng/ml (0.5-3.6) Creatine Kinase MB Ratio 1.5 (0-3.0) Troponin I < 0.015 ng/ml (0-0.045) Imaging CT head- No intra or extra-axial mass lesions are visualized. There is no CT evidence of acute cortical infarction. There is no evidence of midline shift. There is no acute hemorrhage. No calvarial fractures are visualized. There are patchy white matter hypodensities likely on a small vessel basis. There is mild ventricular dilatation, likely secondary to volume loss. There is no evidence of acute sinusitis TTE- * No significant vavular pathology. * The left ventricle is normal in size. * Left ventricular systolic function is normal. * Ejection Fraction = 55-60%. * The right ventricular systolic function is normal. * The left atrial size is normal. * Right atrial size is normal. * no ASD Impression 76 year old male severe dementia with fall -unwitnessed Plan 1. would d/c Aricept -discussed with that the alzheimer's medications are minimally effective and likely not any benefit at this stage of illness 2. wound care for sacral wound 3. psychiatry may be helpful for any medication changes 4. fall precautions 5. discussed with that she may need additional care for him or have higher level of care. She is not interested in SNF care she states "they would drain my custodial" 6. nursing evaluation for safety and any recommendations that may help with patient care. 7. EEG - no seizure activity noted. 8. further recommendations to follow 9. TTE with no cardiac source 10. carotid doppler -ordered I have seen and discussed above patient with Dr Solis Anderson, neurology Patient seen and case reviewed with Amina MCCRARY C agree with the above a this point alzheimers is very advanced and aricept unlikely to do anything other than produce side effects so would stop it While risk for seizures is high in alzheimers and eegs are often normal or nonhelpful at this time without a better story for seizure would not rx with aeds Agree that Psych may be of help re some of the medications bor behavior issues and will need much support since extended care costs ae prohibitive and her options include only in home care for now Solis Anderson MD
--- NOTE | 2016-11-14 15:01 | ELECTROENCEPHALOGRAPH REPORT ---
REQUESTING PHYSICIAN: Dr. Walsh. CLINICAL DIAGNOSIS: Known dementia with confusion, fall, possible closed head injury. ELECTROENCEPHALOGRAM DIAGNOSIS: Mildly diffusely abnormal EEG during apparent wakefulness. DESCRIPTION OF TRACING: This EEG was done as a bedside recording with simultaneous video analysis of patient movement and behavior. This study is of reasonable technical quality. There are a number of muscle movement artifacts captured on video to correlate with artifacts on the EEG, but between these events, tracing is technically free of significant issues and is quite interpretable. Photic stimulation is performed. Hyperventilation was not. Drowsiness appears to occur episodically based on EEG criteria. Under these conditions, the background rhythm is at most in the upper theta range at 8 Hz of running around 7 Hz and is of up to 30 microvolts of amplitude and maximum posterior head regions bilaterally symmetrical. Polymorphic mid to slightly lower frequency theta activity is seen over all head regions, maximum in the central regions with some isolated waveforms in the delta range as well. Anterior head region maximum bilaterally symmetrical low voltage fast activity in the beta range is present. Photic stimulation provoked some minimal driving response without a photomyogenic or photoparoxysmal component. Drowsiness is recorded briefly and has manifested by slowing of the background alpha rhythm and increased theta activity, but is accompanied by no other EEG changes and specifically no potentially epileptogenic patterns. During wakefulness, there is no evidence for potentially epileptogenic discharges as well. INTERPRETATION: This EEG is mildly diffusely abnormal in a highly nonspecific fashion without lateralizing features and without accompanying potentially epileptogenic patterns. Certainly an advanced dementia or after a head injury this type of EEG may not necessarily be "abnormal".
--- NOTE | 2016-11-14 16:22 | DIAGNOSTIC IMAGING REPORT ---
CAROTID ARTERY ULTRASOUND CLINICAL HISTORY: Unwitnessed collapse. COMPARISON STUDY: None. TECHNIQUE: Real-time, grayscale, and color Doppler sonography of the carotid and vertebral arteries was performed. Images were viewed in the transverse and longitudinal planes. FINDINGS: There is mild to moderate atherosclerotic plaque. Velocity measurements are listed below. COMMON CAROTID PEAK SYSTOLIC VELOCITY (CM/S): RIGHT 62 LEFT 82 ICA PEAK SYSTOLIC VELOCITY (CM/S): RIGHT 60 LEFT 53 The systolic ratios between the internal to common carotid arteries were normal. Antegrade flow is seen in the vertebral arteries. The external carotid arteries are patent. IMPRESSION: No evidence for a hemodynamically significant stenosis. Electronically signed by: Frandy Cohen M.D. 11/14/2016 4:21 PM Dictated Date/Time: 11/14/2016 4:18 PM
[2016-11-14] MEDS: LORAZEPAM 0.5 MG TAB PO PRN (18:34)
--- NOTE | 2016-11-14 18:59 | Progress Note ---
Internal Med Progress Note Date of Service: November 14, 2016. Provider Documentation: SUBJECTIVE: still drowsy has severe dementia when asked asked says he is fine when asked what's your name Casey, patient says"Casey" not able to answer any other questions As per nursing staff Patient having apneic episodes hemodynamics stable. oxygen saturation fine on room air OBJECTIVE: Vital Signs-as noted below Exam: General- Drowsy ENT-normal hearing Neck-no neck masses Lungs-cta b/l no wheezing or crackles Heart-s1 and s2 heard regular rate and rhythm no murmurs Abdomen-soft bowel sounds no tenderness no distension Extremities-no edema no erythema Neuro-drowsy oriented to name? Lab data as noted below. ASSESSMENT & PLAN: 76 year old male with severe dementia presents to the ED following unwitnessed fall. Unknown duration of time on floor. Altered mental status from baseline.Workup is negative so far. Aricept stopped secondary to bradycardia. Patient still drowsy and concerned, Plan for MRI head. Apneic episodes. will f/u nocturnal pulse ox study.Seen by neurology. Pt/ot once more awake. ALTERED MENTAL STATUS, HEAD TRAUMA Encephalopathy from concussion? hx of frequent falls unwitnessed fall and had some bleeding on the head AMS.Concussion? Initial ct head and repeat ct head today unremarkable seen by neurology eeg unremarkable. labs fine echo and carotid ultrasound unremarkable Still drowsy-received a dose of Ativan in ER Plan for mri as concerned will f/u results. Apneic episodes? hemodynamics stable. sats fine will f/u abg and nocturnal pulse ox study. f/u mri as above bradycardia causing falls? stopped Aricept neurology ok for stopping Aricept monitor in tele UNWITNESSED FALL history of multiple falls Fall precautions, bed alarm On Gentle IVF hydration [employer] consult for discharge planning PT/OT Eval DEMENTIA/Anxiety On multiple medications at home, Zoloft, Risperdal, Aricept, Namenda, Ativan, Remeron Aricept stopped as above Holding Remeron and Risperdal until more awake Fall precautions, bed alarm GERD PPI, [id number] HLD Statin DVT PROPHYLAXIS: SCDs RE: head trauma DISPO: pt/ot prior to discharge social service for d/c planning Vital Signs: Date Time Temp Pulse Resp B/P Pulse Ox O2 Delivery O2 Flow Rate FiO2 11/14/16 16:00 Room Air 11/14/16 15:35 36.3 57 16 114/69 98 Room Air 11/14/16 15:03 55 117/66 97 Room Air 11/14/16 12:00 Room Air 11/14/16 11:40 36.7 51 16 113/63 95 Room Air 11/14/16 08:00 Room Air 11/14/16 07:24 36.8 51 18 115/72 94 Room Air 11/14/16 04:23 36.9 62 18 96/56 93 Room Air 11/14/16 04:00 95 Room Air 11/14/16 00:00 95 Room Air 11/13/16 23:41 36.6 57 18 121/56 95 Room Air Lab Results: Results Past 24 Hours Test 11/13/16 21:03 11/14/16 03:06 11/14/16 18:41 Range/Units Total Creatine Kinase 77 67 39-308 U/L Creatine Kinase MB 1.1 1.0 0.5-3.6 ng/ml Creatine Kinase MB Ratio 1.4 1.5 0-3.0 Troponin I < 0.015 < 0.015 0-0.045 ng/ml White Blood Count 7.25 4.8-10.8 K/uL Red Blood Count 3.71 4.7-6.1 M/uL Hemoglobin 11.5 14.0-18.0 g/dL Hematocrit 35.0 42-52 % Mean Corpuscular Volume 94.3 80-100 fL Mean Corpuscular Hemoglobin 31.0 25-34 pg Mean Corpuscular Hemoglobin Concent 32.9 32-36 g/dl RDW Standard Deviation 47.6 36.4-46.3 fL RDW Coefficient of Variation 13.7 11.5-14.5 % Platelet Count 250 130-400 K/uL Mean Platelet Volume 9.3 7.4-10.4 fL Sodium Level 144 136-145 mmol/L Potassium Level 4.0 3.5-5.1 mmol/L Chloride Level 108 98-107 mmol/L Carbon Dioxide Level 27 21-32 mmol/L Anion Gap 9.0 3-11 mmol/L Blood Urea Nitrogen 20 7-18 mg/dl Creatinine 0.82 0.60-1.40 mg/dl Est Creatinine Clear Calc Drug Dose 61.0 ml/min Estimated GFR () 100.3 Estimated GFR (Non- 86.5 BUN/Creatinine Ratio 24.5 10-20 Random Glucose 84 70-99 mg/dl Calcium Level 8.0 8.5-10.1 mg/dl Magnesium Level 2.1 1.8-2.4 mg/dl
[2016-11-14] MEDS ORDERED: GADAVIST IV PRN (20:00)
--- NOTE | 2016-11-14 20:11 | DIAGNOSTIC IMAGING REPORT ---
MRI OF THE BRAIN COMBO CLINICAL HISTORY: Syncope. Change in mental status. COMPARISON STUDY: CT of the brain dated 11/14/2016. TECHNIQUE: MRI of the brain was performed utilizing various T1 and T2-weighted sequences in the axial, sagittal, and coronal planes. Contrast-enhanced sequences were acquired following the administration of 5.5 cc of Gadavist. FINDINGS: Brain parenchyma: There are age-related involutional changes noting mild subcortical and periventricular microangiopathic disease. There is no hemorrhage or mass effect. There is no restricted diffusion to suggest acute ischemia. No enhancing mass lesion is identified on the postcontrast images. Yepez-white matter differentiation is preserved. No extra-axial fluid collection is seen. The cerebellar tonsils are normal in configuration. Ventricles, sulci, and cisterns: Prominent secondary to involutional change. Pituitary and sella: Unremarkable. Intracranial vasculature: Normal flow voids are maintained at the skull base. Orbits: The bony orbits are grossly intact. Orbital contents are normal in appearance. Sinuses and mastoids: Mild mucosal thickening is seen in the ethmoid sinuses. The remaining paranasal sinuses and mastoid air cells are clear. Calvarium: Unremarkable. Cervical cord: Partially visualized cervical spinal cord is normal in morphology and signal intensity. IMPRESSION: No acute intracranial abnormality. Electronically signed by: Pillo Schwartz M.D. 11/14/2016 8:10 PM Dictated Date/Time: 11/14/2016 8:06 PM
[2016-11-14] MEDS: GABAPENTIN 300 MG CAP PO SCH (20:18)
[2016-11-14 20:25] LABS: ARTERIAL BLD GAS O2 SATURATION 92.5 % (90-95); ARTERIAL BLOOD GAS BASE EXCESS 1.8 mEq/L (-9-1.8); ARTERIAL BLOOD GAS HCO3 25 mmol/L (19-24); ARTERIAL BLOOD GAS PO2 66 mm/Hg (80-95); ARTERIAL BLOOD GAS pH 7.47 (7.35-7.45)
[2016-11-14 20:28] LABS: ALLEN TEST POS (POS); O2 ADMINISTRATION ROOM AIR
[2016-11-15] MEDS: LORAZEPAM 0.5 MG TAB PO PRN ×2 (00:46→18:32)
[2016-11-15] MEDS: SERTRALINE HCL 50 MG TAB PO SCH ×2 (07:49→17:05)
[2016-11-15] MEDS: RANITIDINE HCL 150 MG TAB PO SCH ×2 (07:50→21:10)
[2016-11-15] MEDS: ATORVASTATIN 40 MG TAB PO SCH (07:50)
[2016-11-15] MEDS: PANTOprazole SOD 40 MG TAB PO SCH (07:50)
[2016-11-15] MEDS: MEMANTINE 10 MG TAB PO SCH ×2 (07:50→21:09)
[2016-11-15 08:14] VITALS: BP 128/77; PULSE 52; TEMP 36.3; O2SAT 93
[2016-11-15] MEDS: SODIUM CHLORIDE 0.9% 1000ML 1,000 ML IV SCH (09:22)
[2016-11-15 11:11] VITALS: BP 103/52; PULSE 52; TEMP 36.5; O2SAT 94
--- NOTE | 2016-11-15 13:35 | Neurology Progress Notes ---
Neurology Progress Note Date of Service November 15, 2016. Katelyn Peña is a 76 year old male with PMH of Dementia, GERD, HLD presents after a fall this am. He lives at home with his and a healthcare administrator. states he was found on the floor this morning in his bedroom by the caregiver. They were unsure how long he was down and he was very lethargic and somewhat unresponsive. He would not speak. They noticed dried blood on his head so EMS was called and he was brought to the ED for further evaluation. He has had multiple falls his baseline is pleasantly confused but has some anxiety. He answers most questions yes and no but does have some conversations with people close to him. He has not had any fevers, chills, vomiting, diarrhea. he has been incontinent at baseline. His states she has been taking care of him for 7 years and 1 year ago she had a caregiver in the home to help her with care. He was given IV fluids in the ED and he became more alert. He is getting out of bed with the help of PT but he is not doing much to help with the transfer to the wheel chair. His states there was discussion regarding stopping the Aricept due to the will cardia and she seems to understand. Today he is sleeping and awakes with voice command. is in the room and states she would like to see the MRI. Discussed the progression of the disease and she states over the past 7 year he had deteriorated quite significantly. Objective Date Time Temp Pulse Resp B/P Pulse Ox O2 Delivery O2 Flow Rate FiO2 11/15/16 12:00 Room Air 11/15/16 11:11 36.5 52 16 103/52 94 Room Air 11/15/16 08:15 Room Air 11/15/16 08:14 36.3 52 15 128/77 93 Room Air 11/15/16 04:00 Room Air 11/15/16 00:00 Room Air 11/14/16 23:11 36.8 54 16 111/73 94 Room Air 11/14/16 20:39 36.4 56 18 106/57 96 Room Air 11/14/16 20:00 Room Air 11/14/16 16:00 Room Air 11/14/16 15:35 36.3 57 16 114/69 98 Room Air 11/14/16 15:03 55 117/66 97 Room Air Last 24 Hours Test 11/14/16 20:15 Arterial Blood pH 7.47 Arterial Blood Partial Pressure CO2 36 mmHg Arterial Blood Partial Pressure O2 66 mm/Hg Arterial Blood HCO3 25 mmol/L Arterial Blood Oxygen Saturation 92.5 % Arterial Blood Base Excess 1.8 mEq/L Arterial Blood Gas Delivery ROOM AIR Robert Test POS Imaging: MRI with and without contrast-No acute intracranial abnormality. carotid doppler- No evidence for a hemodynamically significant stenosis. Exam: Gen: alert with voice lungs: normal respiratory effort CV RRR does not follow commands closes his eyes when done interacting Current Inpatient Medications Medications (Trade) Dose Ordered Sig/Evangelina Route Start Time Stop Time Status Last Admin Dose Admin Sodium Chloride (Nss 1000ml) 1,000 ml @ 75 mls/hr [id number] IV 11/13/16 17:11 12/13/16 17:10 11/15/16 09:22 75 MLS/HR Acetaminophen (Tylenol Tab) 650 mg Q4H PRN PO 11/13/16 17:15 12/13/16 17:14 Ondansetron HCl (Zofran Inj) 4 mg Q6H PRN IV 11/13/16 17:15 12/13/16 17:14 Atorvastatin Calcium (Lipitor Tab) 40 mg DAILY PO 11/14/16 09:00 12/14/16 08:59 11/15/16 07:50 40 MG Gabapentin (Neurontin Cap) 600 mg HS PO 11/13/16 21:00 12/13/16 20:59 11/14/16 20:18 600 MG Lorazepam (Ativan Tab) 0.5 mg Q6 PRN PO 11/13/16 17:30 12/13/16 17:29 11/15/16 00:46 0.5 MG Meclizine HCl (Antivert Tab) 25 mg TID PRN PO 11/13/16 17:30 12/13/16 17:29 Memantine (Namenda Tab) 10 mg BID PO 11/13/16 21:00 12/13/16 20:59 11/15/16 07:50 10 MG Ranitidine HCl (zANTac TAB) 300 mg BID PO 11/13/16 21:00 12/13/16 20:59 11/15/16 07:50 300 MG Risperidone (Risperdal Tab) 0.5 mg BID@0900,1400 PO 11/14/16 09:00 12/14/16 08:59 Future Hold 11/14/16 09:33 0.5 MG Risperidone (Risperdal Tab) 1 mg HS PO 11/13/16 21:00 12/13/16 20:59 Future Hold 11/13/16 20:51 1 MG Sertraline HCl (Zoloft Tab) 25 mg DAILY@1600 PO 11/14/16 16:00 12/14/16 15:59 Sertraline HCl (Zoloft Tab) 50 mg QAM PO 11/14/16 09:00 12/14/16 08:59 11/15/16 07:49 50 MG Mirtazapine (Remeron Tab) 45 mg HS PO 11/13/16 21:00 12/13/16 20:59 Future Hold 11/13/16 20:51 45 MG Pantoprazole Sodium (Protonix Tab) 40 mg DAILYBB PO 11/14/16 06:30 12/14/16 06:59 11/15/16 07:50 40 MG Miscellaneous (Iv Fluids Completed) 1 ea PRN PRN N/A 11/14/16 01:00 11/14/17 00:59 Gadobutrol (Gadavist) 5.5 mmol UD PRN IV 11/14/16 20:00 11/18/16 19:59 Impression 76 year old male severe dementia with fall -unwitnessed Plan 1. d/c Aricept -discussed with that the alzheimer's medications are minimally effective and likely not any benefit at this stage of illness 2. wound care for sacral wound 3. psychiatry may be helpful for any medication changes 4. fall precautions 5. discussed with that she may need additional care for him or have higher level of care. She is not interested in SNF care she states "they would drain my group home" 6. nursing evaluation for safety and any recommendations that may help with patient care. 7. EEG - no seizure activity noted. 8. further recommendations to follow 9. TTE with no cardiac source 10. carotid doppler -no significant stenosis 11. MRI brain with and without-no structural issues or lesions. review with and discussed volume loss. she voices appreciation. 12. neurology at this stage of disease will not have much further to offer. Will follow as needed. I have seen and discussed above patient with Dr Solis Anderson, neurology Seen today imaging studies reviewed and case discussed with Jolly Monterroso and He is brighter today off many meds but is concerned about merging agitation and in the past at home this responds well to low dose ativan so this probaly ought to b continued paych is getting on board re meds and perhaps lower doses if possible to control excess sedation and lessen fall risk but with advancing disease the risk for motor involvement and falls rises despite meds We currently have no evidence for a cva subdural or other bleed and no evidence for seizures and aricept is being stopped so we will sign off the case and see charo Anderson MD
[2016-11-15 15:50] VITALS: BP 143/61; PULSE 55; TEMP 36.5; O2SAT 91
[2016-11-15] MEDS ORDERED: HALOPERIDOL LACTATE 5 MG/ML 1 ML VIAL IM PRN (19:15)
--- NOTE | 2016-11-15 19:24 | Progress Note ---
Medicine Progress Note Date & Time of Visit: November 15, 2016 at ~ 15:00 . Subjective Somnolent, but arousable. Denies any problems such as headache, other pain, CP, SOB, nausea, vomiting. visiting. . Objective Last 8 Hrs Date Time Temp Pulse Resp B/P Pulse Ox O2 Delivery O2 Flow Rate FiO2 11/15/16 16:00 Room Air 11/15/16 15:50 36.5 55 16 143/61 91 Room Air 11/15/16 12:00 Room Air Physical Exam: General- no acute distress Head- abrasion / contusion right fronto-temporal region Lungs- clear Heart- RRR Abdomen- soft, nontender Extremities- no pretibial edema or calf tenderness Neuro- somnolent, but arousable; does not follow commands easily; moderate cogwheel rigidity upper extremities Laboratory Results: Last 24 Hours Test 11/14/16 20:15 Arterial Blood pH 7.47 Arterial Blood Partial Pressure CO2 36 mmHg Arterial Blood Partial Pressure O2 66 mm/Hg Arterial Blood HCO3 25 mmol/L Arterial Blood Oxygen Saturation 92.5 % Arterial Blood Base Excess 1.8 mEq/L Arterial Blood Gas Delivery ROOM AIR Robert Test POS Assessment & Plan FALL No acute process per CT / MRI brain. Possibly due to dehydration / orthostasis. Meds may be contributing factor. DEMENTIA History of dementia with behavioral disturbances. Spouse reports that neuropsych testing consistent with Alzheimer's disease. MRI demonstrates small vessel ischemic changes- may have component of vascular dementia. Has features consistent with Lewy body dementia- hallucinations, possible REM sleep disorder, Parkinsonian features possibly worsened by antipsychotics. Behavior improved with current meds, but polypharmacology may be contributing to falls. Some meds (risperidone and mirtazapine) were held due to confusion and falls. Spouse concerned that aggressive behavior may recur without them. Will restart risperidone and mirtazapine, but at lower doses. Best to avoid benzodiazepines. Nonpharmacologic measures and 1:1 staffing as needed. Low dose IM haloperidol as needed for severe agitation not relieved by nonpharmacologic measures. Consult Psych to assist with medications. DEHYDRATION Received IV fluids. SKIN CONCERNS (present on admission) Erythema with blanching noted on right buttock. Wound Care Nursing consulted. Continue local care, repositioning. VTE PROPHYLAXIS No anticoagulants due to head injury. SCD's. Ambulate with assistance. DISPOSITION Spouse committed to ongoing care at home. Case Management consulted to assist with home health services. Family Medicine follow-up with Dr. Gloria. Psychiatry follow-up with Dr. Quinn. . Current Inpatient Medications: Current Inpatient Medications Medications (Trade) Dose Ordered Sig/Evangelina Route Start Time Stop Time Status Last Admin Dose Admin Acetaminophen (Tylenol Tab) 650 mg Q4H PRN PO 11/13/16 17:15 12/13/16 17:14 Atorvastatin Calcium (Lipitor Tab) 40 mg DAILY PO 11/14/16 09:00 12/14/16 08:59 11/15/16 07:50 40 MG Gabapentin (Neurontin Cap) 600 mg HS PO 11/13/16 21:00 12/13/16 20:59 11/14/16 20:18 600 MG Memantine (Namenda Tab) 10 mg BID PO 11/13/16 21:00 12/13/16 20:59 11/15/16 07:50 10 MG Ranitidine HCl (zANTac TAB) 300 mg BID PO 11/13/16 21:00 12/13/16 20:59 11/15/16 07:50 300 MG Sertraline HCl (Zoloft Tab) 25 mg DAILY@1600 PO 11/14/16 16:00 12/14/16 15:59 11/15/16 17:05 25 MG Sertraline HCl (Zoloft Tab) 50 mg QAM PO 11/14/16 09:00 12/14/16 08:59 11/15/16 07:49 50 MG Pantoprazole Sodium (Protonix Tab) 40 mg DAILYBB PO 11/14/16 06:30 12/14/16 06:59 11/15/16 07:50 40 MG Miscellaneous (Iv Fluids Completed) 1 ea PRN PRN N/A 11/14/16 01:00 11/14/17 00:59 Gadobutrol (Gadavist) 5.5 mmol UD PRN IV 11/14/16 20:00 11/18/16 19:59 Risperidone (Risperdal Tab) 0.5 mg BID PO 11/15/16 21:00 12/15/16 20:59 UNV Haloperidol Lactate (Haldol Inj) 0.5 mg Q30M PRN IM 11/15/16 19:15 12/15/16 19:14 UNV Mirtazapine (Remeron Tab) 30 mg HS PO 11/15/16 21:00 12/15/16 20:59 UNV
[2016-11-15 19:53] VITALS: BP 147/66; PULSE 77; TEMP 36.9; O2SAT 98
[2016-11-15] MEDS ORDERED: MIRTAZAPINE TAB 15 MG TAB PO SCH (21:00)
[2016-11-15] MEDS: RISPERIDONE 0.5 MG TAB PO SCH (21:09)
[2016-11-15] MEDS: GABAPENTIN 300 MG CAP PO SCH (21:10)
[2016-11-15 23:14] VITALS: BP 145/86; PULSE 56; TEMP 36.2; O2SAT 94
[2016-11-16 03:34] VITALS: BP 149/73; PULSE 51; TEMP 36.8; O2SAT 95
[2016-11-16] MEDS: PANTOprazole SOD 40 MG TAB PO SCH (06:38)
[2016-11-16 06:59] VITALS: BP 131/77; PULSE 50; TEMP 35.7; O2SAT 95
[2016-11-16 07:45] VITALS: BP_SYST 108; BP_SYST 87; BP_DIAS 55; BP_DIAS 66; PULSE 48; PULSE 89
[2016-11-16] MEDS: SERTRALINE HCL 50 MG TAB PO SCH ×2 (08:21→16:47)
[2016-11-16] MEDS: MEMANTINE 10 MG TAB PO SCH ×2 (08:21→21:35)
[2016-11-16] MEDS: RANITIDINE HCL 150 MG TAB PO SCH ×2 (08:22→21:38)
[2016-11-16] MEDS: RISPERIDONE 0.5 MG TAB PO SCH ×2 (08:22→21:36)
[2016-11-16] MEDS: ATORVASTATIN 40 MG TAB PO SCH (08:22)
[2016-11-16 11:19] VITALS: BP_SYST 90; BP_SYST 95; BP_DIAS 56; BP_DIAS 58; PULSE 66; TEMP 35.7; O2SAT 95
--- NOTE | 2016-11-16 13:40 | Psychiatric Consultation ---
Consultation Date of Consultation November 16, 2016. Identifying Data Casey Deal is a 76-year-old male with known dementia, who was brought to the ED by ambulance after family found him in his room on the floor poorly responsive. This consult is requested to assist with psychiatric medication management. Chief Complaint None stated. History of Present Illness 76-year-old gentleman with known dementia, dyslipidemia and GERD who was brought to the emergency room by ambulance after his family and caregiver found him on the floor in his bedroom poorly responsive. He has a history of recent falls. He has had known Alzheimer's for an unspecified period of time, and has been on both Aricept and Namenda. The had been caring for him by herself for the last 8 years until one year ago when she enlisted the help of the caregiver in order to have him remain in their home. He generally is poorly communicative although will have conversations with people who are close to him. The patient also sees Dr. Solis Quinn in psychiatry. He has been prescribed Remeron 45 mg at bedtime, Risperdal 0.5 mg in a.m. and p.m. +1 mg at bedtime, Zoloft 50 mg a.m. and 25 mg in the afternoon. Upon admission, medications were held due to concerns for somnolence and have now been restarted at a reduced dosage. At the time I see the patient, he is seated in the bedside chair with his eyes closed. There is a nursing teacher at the bedside who provides information that he has been in good behavioral control. He generally does not open his eyes. He participated with physical therapy this morning and made attempts to follow their commands and walk to the bedside chair. She observed him to hallucinate although there are reports of hallucinations in the neurology consultation. The nurse's aide does report that he did not sleep well and was up most of the night last night. The liaison nurse has placed a call to the for additional information but we have not received a return call yet. Past Psychiatric History Current OP Treatment: psychiatrist (Dr. Quinn) Past Medical/Surgical History (1) Alzheimers disease (2) GERD (gastroesophageal reflux disease) (3) HLD (hyperlipidemia) Allergies Allergies: Coded Allergies: Trazodone and Nefazodone (Verified Allergy, Unknown, NO REACTION [place] [facility] [place] Home Medications Scheduled Atorvastatin (Lipitor), 40 MG PO DAILY Donepezil Hydrochloride (Aricept), 10 MG PO DAILY Gabapentin (Neurontin), 600 MG PO HS Melatonin (Melatonin), 6 MG PO HS Memantine (Namenda), 10 MG PO BID Mirtazapine (Remeron), 45 MG PO HS Omeprazole (Prilosec), 20 MG PO DAILYBB Ranitidine Hcl (Zantac), 300 MG PO BID Risperidone (Risperdal), 0.5 MG PO BID Risperidone (Risperdal), 1 MG PO HS Sertraline (Zoloft), 25 MG PO AT 1600 Sertraline (Zoloft), 50 MG PO QAM Scheduled PRN Lorazepam (Ativan), 0.5-1 MG PO Q6 PRN for Anxiety Meclizine Hcl (Meclizine Hcl), 1 TAB PO TID PRN for Dizziness or Vertigo Family History FH: heart disease Alcohol Use Alcohol Use In Past 12 Months: No (patient is unable to make any reports about alcohol use at this time) Smoking Use Smoking Status: Never Smoker Personal History 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 Viramontes Vital Signs Vital Signs Past 12 Hours Date Time Temp Pulse Resp B/P Pulse Ox O2 Delivery O2 Flow Rate FiO2 11/16/16 12:00 Room Air 11/16/16 11:19 35.7 66 18 95/58 95 Room Air 90/56 11/16/16 08:00 Room Air 11/16/16 07:45 89 87/55 48 108/66 11/16/16 06:59 35.7 50 20 131/77 95 Room Air 11/16/16 04:00 Room Air 11/16/16 03:34 36.8 51 15 149/73 95 Room Air Laboratory Results 11/14/16 03:06 11/14/16 03:06 Test 11/13/16 14:25 11/13/16 15:00 11/13/16 15:50 11/14/16 03:06 Bedside Glucose 106 mg/dl (70-99) Immature Granulocyte % (Auto) 0.3 % White Blood Count 7.97 K/uL (4.8-10.8) Red Blood Count 4.40 M/uL (4.7-6.1) 3.71 M/uL (4.7-6.1) Hemoglobin 14.1 g/dL (14.0-18.0) Hematocrit 41.5 % (42-52) Mean Corpuscular Volume 94.3 fL (80-100) 94.3 fL (80-100) Mean Corpuscular Hemoglobin 32.0 pg (25-34) 31.0 pg (25-34) Mean Corpuscular Hemoglobin Concent 34.0 g/dl (32-36) 32.9 g/dl (32-36) Platelet Count 279 K/uL (130-400) Mean Platelet Volume 9.8 fL (7.4-10.4) 9.3 fL (7.4-10.4) Neutrophils (%) (Auto) 61.4 % Lymphocytes (%) (Auto) 23.0 % Monocytes (%) (Auto) 13.9 % Eosinophils (%) (Auto) 1.0 % Basophils (%) (Auto) 0.4 % Neutrophils # (Auto) 4.90 K/uL (1.4-6.5) Lymphocytes # (Auto) 1.83 K/uL (1.2-3.4) Monocytes # (Auto) 1.11 K/uL (0.11-0.59) Eosinophils # (Auto) 0.08 K/uL (0-0.5) Basophils # (Auto) 0.03 K/uL (0-0.2) Immature Granulocyte # (Auto) 0.02 K/uL (0.00-0.02) Prothrombin Time 12.3 SECONDS (9.0-12.0) Prothromb Time International Ratio 1.1 (0.9-1.1) Activated Partial Thromboplast Time 27.1 SECONDS (21.0-31.0) Partial Thromboplastin Ratio 1.0 Total Bilirubin 0.7 mg/dl (0.2-1) Direct Bilirubin 0.2 mg/dl (0-0.2) Aspartate Amino Transf (AST/SGOT) 26 U/L (15-37) Alanine Aminotransferase (ALT/SGPT) 40 U/L (12-78) Alkaline Phosphatase 98 U/L (45-117) Total Protein 7.2 gm/dl (6.4-8.2) Albumin 3.4 gm/dl (3.4-5.0) Lipase 244 U/L (73-393) Thyroid Stimulating Hormone (TSH) 2.110 uIu/ml (0.300-4.500) Urine Color YELLOW Urine Appearance CLEAR (CLEAR) Urine pH 6.5 (4.5-7.5) Urine Specific [place] 1.027 (1.000-1.030) Urine Protein NEG (NEG) Urine Glucose (UA) NEG (NEG) Urine Ketones NEG (NEG) Urine Occult Blood NEG (NEG) Urine Nitrite NEG (NEG) Urine Bilirubin NEG (NEG) Urine Urobilinogen NEG (NEG) Urine Leukocyte Esterase NEG (NEG) Urine WBC (Auto) 1-5 /hpf (0-5) Urine RBC (Auto) 0-4 /hpf (0-4) Urine Hyaline Casts (Auto) 0 /lpf (0-5) Urine Epithelial Cells (Auto) >30 /lpf (0-5) Urine Bacteria (Auto) NEG (NEG) Urine Renal Epithelial Cells /lpf (0-5) RDW Standard Deviation 47.6 fL (36.4-46.3) RDW Coefficient of Variation 13.7 % (11.5-14.5) Anion Gap 9.0 mmol/L (3-11) Est Creatinine Clear Calc Drug Dose 61.0 ml/min Estimated GFR () 100.3 Estimated GFR (Non- 86.5 BUN/Creatinine Ratio 24.5 (10-20) Calcium Level 8.0 mg/dl (8.5-10.1) Magnesium Level 2.1 mg/dl (1.8-2.4) Total Creatine Kinase 67 U/L (39-308) Creatine Kinase MB 1.0 ng/ml (0.5-3.6) Creatine Kinase MB Ratio 1.5 (0-3.0) Troponin I < 0.015 ng/ml (0-0.045) Test 11/14/16 20:15 Arterial Blood pH 7.47 (7.35-7.45) Arterial Blood Partial Pressure CO2 36 mmHg (35-46) Arterial Blood Partial Pressure O2 66 mm/Hg (80-95) Arterial Blood HCO3 25 mmol/L (19-24) Arterial Blood Oxygen Saturation 92.5 % (90-95) Arterial Blood Base Excess 1.8 mEq/L (-9-1.8) Arterial Blood Gas Delivery ROOM AIR Robert Test POS (POS) Mental Examination During interview pt is: uncooperative Appearance: appropriately dressed, appropriately groomed Eye contact is: poor (only opens eyes slightly) Motor behavior is: no abnormal motor movements Speech: other (does not participate verbally beyond telling me he prefers to be called) Affect: flat Mood is: other (unable to assess as patient cannot participate in interview) Thought content: other (unable to assess as patient is unable to participate in interview) Intelligence estimated to be: average Insight: impaired Judgement: impaired Impression / Recommendations Impression Mr. Deal is a 76-year-old gentleman who is in relative good medical health, but with a multiple year history of dementia. He is brought to the hospital after being found down in his bedroom. Psychiatric medications were initially held and now restarted at reduced doses. We're consulted to assist in medication management. Given the fact that they're consistent reports that he is an anxious person at baseline, I will recommend we increase his Zoloft back to his outpatient doses. This likely contributed any somnolence in any case. In terms of the Remeron, remarkably, elderly people can generally tolerate higher doses and in view of the fact he did not sleep last night, I will recommend returning to his outpatient dose of 45 mg. He is not agitated here and so we'll continue the reduced dose of Risperdal, 0.5 mg twice a day. His QTC is acceptable, with evidence of bradycardia. Neurology has arty stop the Aricept since it is likely not going to help his dementia at this point. I have asked the liaison nurse to talk with his about reports of hallucinations and whether or not they predate the use of Namenda. If indeed there is solid evidence of hallucinations since starting Namenda, I would recommend a trial off of Namenda to see if this. I'm also going to asked nursing to get some orthostatic blood pressures to be sure his medications are not causing him to feel faint when standing. We have requested records from Dr. Quinn and will keep him informed of any medication changes. Risk Factors Assessment Male: Yes : Yes /single/: No Higher / Fall in social status: Yes Health problems: Yes Protective Factors Assessment : Yes Responsible for young children: No Employed: No Recommendations (1) Major neurocognitive disorder due to Alzheimer's disease, possible 5/3 -Continue Namenda at the discretion of neurology. If reports onset of hallucinations post Namenda, would recommend a trial off -Encourage day night cycles -Encourage good orientation with nursing care -Continue Risperdal 0.5 mg twice a day. If the patient can tolerate this lower dose, this is preferable given the FDA blackbox warning (2) Anxiety disorder, unspecified 5/3 -Interview with reports of baseline anxiety, would recommend increasing to 75 mg daily as this is not likely to contribute to sedation -Likewise, would recommend increasing Remeron back to 45 mg at bedtime in view of the fact he did not sleep last night at all. -Will order orthostatic blood pressures to be sure he is not hypotensive on standing -Would recommend discharge summary be sent to Dr. Quinn to keep him abreast of medication changes Has been reviewed with Dr. Marsha Marcos
[2016-11-16 15:34] VITALS: BP 89/53; PULSE 62; TEMP 36.6; O2SAT 95
--- NOTE | 2016-11-16 19:45 | Progress Note ---
Medicine Progress Note Date & Time of Visit: November 16, 2016 at 13:40 . Subjective Confused. Agitated at times. Pulled IV out last evening. Sleeping during the day. Denies CP, cough, SOB, nausea, vomiting (although responses not reliable due to confusion). . Objective Last 8 Hrs Date Time Temp Pulse Resp B/P Pulse Ox O2 Delivery O2 Flow Rate FiO2 11/16/16 16:00 Room Air 11/16/16 15:34 36.6 62 16 89/53 95 Room Air 11/16/16 12:00 Room Air Physical Exam: General- no acute distress Head- abrasion / contusion right fronto-temporal region Lungs- clear Heart- RRR Abdomen- soft, nontender Extremities- no pretibial edema or calf tenderness Neuro- somnolent, but arousable; pleasantly confused . Assessment & Plan FALL No acute process per CT / MRI brain. Possibly due to dehydration / orthostasis. Meds may be contributing factor. DEMENTIA History of dementia with behavioral disturbances. Spouse reports that neuropsych testing consistent with Alzheimer's disease. MRI demonstrates small vessel ischemic changes- may have component of vascular dementia. Has features consistent with Lewy body dementia- hallucinations, possible REM sleep disorder, Parkinsonian features possibly worsened by antipsychotics. Behavior improved with current meds, but polypharmacology may be contributing to falls. Some meds (risperidone and mirtazapine) were held due to confusion and falls. Spouse concerned that aggressive behavior may recur without them. Restart risperidone and mirtazapine. Best to avoid benzodiazepines due to dementia. Nonpharmacologic measures and 1:1 staffing as needed. Risperidone or low dose IM haloperidol as needed for severe agitation not relieved by nonpharmacologic measures. Psych consulted to assist with medications. DEHYDRATION Received IV fluids. Pulled out IV. Encourage PO fluid intake. SKIN CONCERNS (present on admission) Erythema with blanching noted on right buttock. Wound Care Nursing consulted. Continue local care, repositioning. VTE PROPHYLAXIS No anticoagulants due to head injury. SCD's. Ambulate with assistance. DISPOSITION Spouse committed to ongoing care at home. Case Management consulted to assist with home health services. Family Medicine follow-up with Dr. Gloria. Psychiatry follow-up with Dr. Quinn. . Current Inpatient Medications: Current Inpatient Medications Medications (Trade) Dose Ordered Sig/Evangelina Route Start Time Stop Time Status Last Admin Dose Admin Acetaminophen (Tylenol Tab) 650 mg Q4H PRN PO 11/13/16 17:15 12/13/16 17:14 Atorvastatin Calcium (Lipitor Tab) 40 mg DAILY PO 11/14/16 09:00 12/14/16 08:59 11/16/16 08:22 40 MG Gabapentin (Neurontin Cap) 600 mg HS PO 11/13/16 21:00 12/13/16 20:59 11/15/16 21:10 600 MG Memantine (Namenda Tab) 10 mg BID PO 11/13/16 21:00 12/13/16 20:59 11/16/16 08:21 10 MG Ranitidine HCl (zANTac TAB) 300 mg BID PO 11/13/16 21:00 12/13/16 20:59 11/16/16 08:22 300 MG Sertraline HCl (Zoloft Tab) 25 mg DAILY@1600 PO 11/14/16 16:00 12/14/16 15:59 11/16/16 16:47 25 MG Sertraline HCl (Zoloft Tab) 50 mg QAM PO 11/14/16 09:00 12/14/16 08:59 11/16/16 08:21 50 MG Pantoprazole Sodium (Protonix Tab) 40 mg DAILYBB PO 11/14/16 06:30 12/14/16 06:59 11/16/16 06:38 40 MG Miscellaneous (Iv Fluids Completed) 1 ea PRN PRN N/A 11/14/16 01:00 11/14/17 00:59 Gadobutrol (Gadavist) 5.5 mmol UD PRN IV 11/14/16 20:00 11/18/16 19:59 Risperidone (Risperdal Tab) 0.5 mg BID PO 11/15/16 21:00 12/15/16 20:59 11/16/16 08:22 0.5 MG Haloperidol Lactate (Haldol Inj) 0.5 mg Q30M PRN IM 11/15/16 19:15 12/15/16 19:14 Mirtazapine (Remeron Tab) 45 mg HS PO 11/16/16 21:00 12/16/16 20:59
[2016-11-16] MEDS: MIRTAZAPINE TAB 15 MG TAB PO SCH (21:36)
[2016-11-16] MEDS: GABAPENTIN 300 MG CAP PO SCH (21:37)
[2016-11-16 23:37] VITALS: BP 111/67; PULSE 62; TEMP 37; O2SAT 94
[2016-11-17 04:15] VITALS: BP 122/71; PULSE 58; TEMP 37.3; O2SAT 92
[2016-11-17] MEDS: PANTOprazole SOD 40 MG TAB PO SCH (06:31)
[2016-11-17] MEDS: ATORVASTATIN 40 MG TAB PO SCH (08:15)
[2016-11-17] MEDS: RISPERIDONE 0.5 MG TAB PO SCH ×2 (08:15→20:40)
[2016-11-17] MEDS: SERTRALINE HCL 50 MG TAB PO SCH ×2 (08:15→16:25)
[2016-11-17] MEDS: RANITIDINE HCL 150 MG TAB PO SCH ×2 (08:15→20:39)
[2016-11-17] MEDS: MEMANTINE 10 MG TAB PO SCH ×2 (08:16→20:38)
[2016-11-17 10:27] VITALS: BP 90/59; PULSE 54; TEMP 35.8; O2SAT 97
[2016-11-17] MEDS ORDERED: LACTATED RINGER'S 1000ML 1,000 ML IV SCH (10:45)
[2016-11-17 11:12] VITALS: BP 77/52; PULSE 56; TEMP 36; O2SAT 95
[2016-11-17 14:54] VITALS: BP 99/64; PULSE 60; TEMP 36.3; O2SAT 95
[2016-11-17 19:52] VITALS: BP 114/71; PULSE 58; TEMP 36.5; O2SAT 96
[2016-11-17] MEDS: GABAPENTIN 300 MG CAP PO SCH (20:39)
[2016-11-17] MEDS: MIRTAZAPINE TAB 15 MG TAB PO SCH (20:40)
--- NOTE | 2016-11-17 21:49 | Progress Note ---
Medicine Progress Note Date & Time of Visit: November 17, 2016 at 10:20 . Subjective Somnolent this morning. No new problems reported by staff. Patient somnolent, minimally verbal at time of my assessment. . Objective Last 8 Hrs Date Time Temp Pulse Resp B/P Pulse Ox O2 Delivery O2 Flow Rate FiO2 11/17/16 20:00 Room Air 11/17/16 19:52 36.5 58 16 114/71 96 Room Air 11/17/16 16:00 Room Air 11/17/16 14:54 36.3 60 16 99/64 95 Room Air Physical Exam: General- no distress Lungs- transmitted upper airway sounds Heart- RRR Abdomen- soft, nontender Extremities- no pretibial edema or calf tenderness Neuro- somnolent . Assessment & Plan FALL No acute process per CT / MRI brain. Possibly due to dehydration / orthostasis. Meds may be contributing factor. DEMENTIA History of dementia with behavioral disturbances. Spouse reports that neuropsych testing consistent with Alzheimer's disease. MRI demonstrates small vessel ischemic changes- may have component of vascular dementia. Has features consistent with Lewy body dementia- hallucinations, possible REM sleep disorder, Parkinsonian features possibly worsened by antipsychotics. Behavior improved with current meds, but polypharmacology may be contributing to falls. Some meds (risperidone and mirtazapine) were held due to confusion and falls. Spouse concerned that aggressive behavior may recur without them. Restart risperidone and mirtazapine. Best to avoid benzodiazepines due to dementia. Nonpharmacologic measures and 1:1 staffing as needed. Psych consulted to assist with medications. DEHYDRATION Received IV fluids. Pulled out IV. Appears to be dehydrated- another liter of IVF ordered. Encourage PO fluid intake. SKIN CONCERNS (present on admission) Erythema with blanching noted on right buttock. Wound Care Nursing consulted. Continue local care, repositioning. VTE PROPHYLAXIS No anticoagulants due to head injury. SCD's. Ambulate with assistance. DISPOSITION Spouse committed to ongoing care at home. Case Management consulted to assist with home health services. Family Medicine follow-up with Dr. Gloria. Psychiatry follow-up with Dr. Quinn. . Current Inpatient Medications: Current Inpatient Medications Medications (Trade) Dose Ordered Sig/Evangelina Route Start Time Stop Time Status Last Admin Dose Admin Acetaminophen (Tylenol Tab) 650 mg Q4H PRN PO 11/13/16 17:15 12/13/16 17:14 Atorvastatin Calcium (Lipitor Tab) 40 mg DAILY PO 11/14/16 09:00 12/14/16 08:59 11/17/16 08:15 40 MG Gabapentin (Neurontin Cap) 600 mg HS PO 11/13/16 21:00 12/13/16 20:59 11/17/16 20:39 600 MG Memantine (Namenda Tab) 10 mg BID PO 11/13/16 21:00 12/13/16 20:59 11/17/16 20:38 10 MG Ranitidine HCl (zANTac TAB) 300 mg BID PO 11/13/16 21:00 12/13/16 20:59 11/17/16 20:39 300 MG Sertraline HCl (Zoloft Tab) 25 mg DAILY@1600 PO 11/14/16 16:00 12/14/16 15:59 11/17/16 16:25 25 MG Sertraline HCl (Zoloft Tab) 50 mg QAM PO 11/14/16 09:00 12/14/16 08:59 11/17/16 08:15 50 MG Pantoprazole Sodium (Protonix Tab) 40 mg DAILYBB PO 11/14/16 06:30 12/14/16 06:59 11/17/16 06:31 40 MG Miscellaneous (Iv Fluids Completed) 1 ea PRN PRN N/A 11/14/16 01:00 11/14/17 00:59 11/17/16 15:57 1 EA Gadobutrol (Gadavist) 5.5 mmol UD PRN IV 11/14/16 20:00 11/18/16 19:59 Risperidone (Risperdal Tab) 0.5 mg BID PO 11/15/16 21:00 12/15/16 20:59 11/17/16 20:40 0.5 MG Haloperidol Lactate (Haldol Inj) 0.5 mg Q30M PRN IM 11/15/16 19:15 12/15/16 19:14 Mirtazapine (Remeron Tab) 45 mg HS PO 11/16/16 21:00 12/16/16 20:59 11/17/16 20:40 45 MG Risperidone (Risperdal Tab) 0.5 mg Q6H PRN PO 11/16/16 19:45 12/16/16 19:44
[2016-11-18 08:00] VITALS: O2SAT 96
[2016-11-18] MEDS: RANITIDINE HCL 150 MG TAB PO SCH ×2 (09:19→20:54)
[2016-11-18] MEDS: MEMANTINE 10 MG TAB PO SCH ×2 (09:20→20:51)
[2016-11-18] MEDS: RISPERIDONE 0.5 MG TAB PO SCH ×2 (09:20→20:53)
[2016-11-18] MEDS: SERTRALINE HCL 50 MG TAB PO SCH ×2 (09:20→16:04)
[2016-11-18] MEDS: ATORVASTATIN 40 MG TAB PO SCH (09:20)
[2016-11-18] MEDS: PANTOprazole SOD 40 MG TAB PO SCH (09:21)
[2016-11-18 11:00] VITALS: BP 94/56; PULSE 60; TEMP 36.5; O2SAT 95
[2016-11-18 12:00] VITALS: O2SAT 97
[2016-11-18 15:12] VITALS: BP 82/52; PULSE 66; TEMP 36.3; O2SAT 94
[2016-11-18 16:00] VITALS: O2SAT 95
--- NOTE | 2016-11-18 20:22 | Progress Note ---
Medicine Progress Note Date & Time of Visit: November 18, 2016 at 19:10 . Subjective Somnolent most of the day. Reassessed this evening. More alert. Appears to be comfortable. notes occasional coughing. Review of systems not reliable due to patient's confusion. . Objective Last 8 Hrs Date Time Temp Pulse Resp B/P Pulse Ox O2 Delivery O2 Flow Rate FiO2 11/18/16 16:00 95 Room Air 11/18/16 15:12 36.3 66 18 82/52 94 Room Air Physical Exam: General- no distress Lungs- clear Heart- RRR Abdomen- soft, nontender Extremities- no pretibial edema or calf tenderness Neuro- alert, confused, more conversant . Assessment & Plan FALL No acute process per CT / MRI brain. Possibly due to dehydration / orthostasis. Meds may be contributing factor. DEMENTIA History of dementia with behavioral disturbances. Spouse reports that neuropsych testing consistent with Alzheimer's disease. MRI demonstrates small vessel ischemic changes- may have component of vascular dementia. Has features consistent with Lewy body dementia- hallucinations, possible REM sleep disorder, Parkinsonian features possibly worsened by antipsychotics. Behavior improved with current meds, but polypharmacology may be contributing to falls. Some meds (risperidone and mirtazapine) were held due to confusion and falls. Spouse concerned that aggressive behavior may recur without them. Restart risperidone and mirtazapine. Best to avoid benzodiazepines due to dementia. Nonpharmacologic measures and 1:1 staffing as needed. Psych consulted to assist with medications. DEHYDRATION Dehydration + associated orthostasis. Received intermittent IV fluids. Pulled out IV at least once. Encourage PO fluid intake. HYPOTENSION BP's as low as 77/52. Intermittent hypotension in supine position; orthostatic hypotension as well. Suspect that hypotension due to volume depletion. Orthostatic hypotension due to combination of volume status + autonomic neuropathy. Maintain fluid status as discussed above. Midodrine contraindicated due to bradycardia. Consider trial of fludrocortisone. SKIN CONCERNS (present on admission) Erythema with blanching noted on right buttock. Wound Care Nursing consulted. Continue local care, repositioning. VTE PROPHYLAXIS No anticoagulants due to head injury. SCD's. Ambulate with assistance. DISPOSITION Spouse committed to ongoing care at home, but is wondering if inpatient rehab may be helpful. Case Management consulted. Family Medicine follow-up with Dr. Gloria. Psychiatry follow-up with Dr. Quinn. . Current Inpatient Medications: Current Inpatient Medications Medications (Trade) Dose Ordered Sig/Evangelina Route Start Time Stop Time Status Last Admin Dose Admin Acetaminophen (Tylenol Tab) 650 mg Q4H PRN PO 11/13/16 17:15 12/13/16 17:14 Atorvastatin Calcium (Lipitor Tab) 40 mg DAILY PO 11/14/16 09:00 12/14/16 08:59 11/18/16 09:20 40 MG Gabapentin (Neurontin Cap) 600 mg HS PO 11/13/16 21:00 12/13/16 20:59 11/17/16 20:39 600 MG Memantine (Namenda Tab) 10 mg BID PO 11/13/16 21:00 12/13/16 20:59 11/18/16 09:20 10 MG Ranitidine HCl (zANTac TAB) 300 mg BID PO 11/13/16 21:00 12/13/16 20:59 11/18/16 09:19 300 MG Sertraline HCl (Zoloft Tab) 25 mg DAILY@1600 PO 11/14/16 16:00 12/14/16 15:59 11/18/16 16:04 25 MG Sertraline HCl (Zoloft Tab) 50 mg QAM PO 11/14/16 09:00 12/14/16 08:59 11/18/16 09:20 50 MG Pantoprazole Sodium (Protonix Tab) 40 mg DAILYBB PO 11/14/16 06:30 12/14/16 06:59 11/18/16 09:21 40 MG Miscellaneous (Iv Fluids Completed) 1 ea PRN PRN N/A 11/14/16 01:00 11/14/17 00:59 11/17/16 15:57 1 EA Risperidone (Risperdal Tab) 0.5 mg BID PO 11/15/16 21:00 12/15/16 20:59 11/18/16 09:20 0.5 MG Haloperidol Lactate (Haldol Inj) 0.5 mg Q30M PRN IM 11/15/16 19:15 12/15/16 19:14 Mirtazapine (Remeron Tab) 45 mg HS PO 11/16/16 21:00 12/16/16 20:59 11/17/16 20:40 45 MG Risperidone (Risperdal Tab) 0.5 mg Q6H PRN PO 11/16/16 19:45 12/16/16 19:44
[2016-11-18] MEDS: MIRTAZAPINE TAB 15 MG TAB PO SCH (20:51)
[2016-11-18] MEDS: GABAPENTIN 300 MG CAP PO SCH (20:54)
[2016-11-18 23:16] VITALS: BP 90/54; PULSE 71; TEMP 36.8; O2SAT 93
[2016-11-19] MEDS: PANTOprazole SOD 40 MG TAB PO SCH (05:36)
[2016-11-19 06:05] VITALS: BP 104/64; PULSE 52; TEMP 36.3; O2SAT 95
[2016-11-19 06:31] LABS: BUN/CREATININE RATIO 25.5 (10-20); CALCIUM 8.5 mg/dl (8.5-10.1); CREATININE 1.1 mg/dl (0.60-1.40); POTASSIUM 4.1 mmol/L (3.5-5.1)
[2016-11-19] MEDS ORDERED: LACTATED RINGER'S 1000ML 1,000 ML IV SCH ×2 (06:45→16:15)
[2016-11-19 07:39] VITALS: BP 114/70; PULSE 52; TEMP 36.8; O2SAT 94
[2016-11-19] MEDS: ATORVASTATIN 40 MG TAB PO SCH (07:46)
[2016-11-19] MEDS: RANITIDINE HCL 150 MG TAB PO SCH ×2 (07:46→20:24)
[2016-11-19] MEDS: FLUDROCORTISONE ACETATE 0.1 MG TAB PO SCH (07:46)
[2016-11-19] MEDS: MEMANTINE 10 MG TAB PO SCH ×2 (07:46→20:25)
[2016-11-19] MEDS: SERTRALINE HCL 50 MG TAB PO SCH ×2 (07:46→16:13)
[2016-11-19] MEDS: RISPERIDONE 0.5 MG TAB PO SCH ×2 (07:46→20:25)
--- NOTE | 2016-11-19 08:02 | Progress Note ---
Medicine Progress Note Date & Time of Visit: November 19, 2016 at 07:30 . Subjective Pleasantly confused last evening. No problems reported last night. Somnolent this morning. . Objective Last 8 Hrs Date Time Temp Pulse Resp B/P Pulse Ox O2 Delivery O2 Flow Rate FiO2 11/19/16 07:39 36.8 52 16 114/70 94 Room Air 11/19/16 06:05 36.3 52 14 104/64 95 Room Air 11/19/16 00:05 Room Air Physical Exam: General- no distress Lungs- clear Heart- RRR Abdomen- + BS, soft, nontender Extremities- no pretibial edema or calf tenderness Neuro- somnolent . Laboratory Results: Last 24 Hours Test 11/19/16 05:29 Sodium Level 141 mmol/L Potassium Level 4.1 mmol/L Chloride Level 106 mmol/L Carbon Dioxide Level 29 mmol/L Anion Gap 6.0 mmol/L Blood Urea Nitrogen 28 mg/dl Creatinine 1.10 mg/dl Est Creatinine Clear Calc Drug Dose 45.7 ml/min Estimated GFR () 75.7 Estimated GFR (Non- 65.3 BUN/Creatinine Ratio 25.5 Random Glucose 85 mg/dl Calcium Level 8.5 mg/dl Assessment & Plan FALL No acute process per CT / MRI brain. Possibly due to dehydration / orthostasis. Meds may be contributing factor. DEMENTIA History of dementia with behavioral disturbances. Spouse reports that neuropsych testing consistent with Alzheimer's disease. MRI demonstrates small vessel ischemic changes- may have component of vascular dementia. Has features consistent with Lewy body dementia- hallucinations, possible REM sleep disorder, Parkinsonian features possibly worsened by antipsychotics. Behavior improved with current meds, but polypharmacology may be contributing to falls. Some meds (risperidone and mirtazapine) were held due to confusion and falls, and then resumed. Psych consulted to assist with medications. Risperidone dose decreased due to Parkinsonian features. Best to avoid benzodiazepines due to dementia. Nonpharmacologic measures and 1:1 staffing as needed. DEHYDRATION Dehydration + associated orthostasis. Received intermittent IV fluids. BUN 28, creatinine 1.1. IV LR x 1 liter today. Encourage PO fluid intake. HYPOTENSION BP's as low as 77/52. Intermittent hypotension in supine position; orthostatic hypotension as well. Suspect that hypotension due to volume depletion. Orthostatic hypotension due to combination of volume status + autonomic neuropathy. Maintain fluid status as discussed above. Midodrine contraindicated due to bradycardia. Start trial of fludrocortisone. SKIN CONCERNS (present on admission) Erythema with blanching noted on right buttock. Wound Care Nursing consulted. Continue local care, repositioning. VTE PROPHYLAXIS No anticoagulants due to head injury. SCD's. Ambulate with assistance. DISPOSITION Spouse committed to ongoing care at home, but is wondering if inpatient rehab may be helpful. Case Management consulted. Family Medicine follow-up with Dr. Gloria. Psychiatry follow-up with Dr. Quinn. Dr. Gloria given update last evening. . Current Inpatient Medications: Current Inpatient Medications Medications (Trade) Dose Ordered Sig/Evangelina Route Start Time Stop Time Status Last Admin Dose Admin Acetaminophen (Tylenol Tab) 650 mg Q4H PRN PO 11/13/16 17:15 12/13/16 17:14 Atorvastatin Calcium (Lipitor Tab) 40 mg DAILY PO 11/14/16 09:00 12/14/16 08:59 11/19/16 07:46 40 MG Gabapentin (Neurontin Cap) 600 mg HS PO 11/13/16 21:00 12/13/16 20:59 11/18/16 20:54 600 MG Memantine (Namenda Tab) 10 mg BID PO 11/13/16 21:00 12/13/16 20:59 11/19/16 07:46 10 MG Ranitidine HCl (zANTac TAB) 300 mg BID PO 11/13/16 21:00 12/13/16 20:59 11/19/16 07:46 300 MG Sertraline HCl (Zoloft Tab) 25 mg DAILY@1600 PO 11/14/16 16:00 12/14/16 15:59 11/18/16 16:04 25 MG Sertraline HCl (Zoloft Tab) 50 mg QAM PO 11/14/16 09:00 12/14/16 08:59 11/19/16 07:46 50 MG Pantoprazole Sodium (Protonix Tab) 40 mg DAILYBB PO 11/14/16 06:30 12/14/16 06:59 11/19/16 05:36 40 MG Miscellaneous (Iv Fluids Completed) 1 ea PRN PRN N/A 11/14/16 01:00 11/14/17 00:59 11/17/16 15:57 1 EA Risperidone (Risperdal Tab) 0.5 mg BID PO 11/15/16 21:00 12/15/16 20:59 11/19/16 07:46 0.5 MG Haloperidol Lactate (Haldol Inj) 0.5 mg Q30M PRN IM 11/15/16 19:15 12/15/16 19:14 Mirtazapine (Remeron Tab) 45 mg HS PO 11/16/16 21:00 12/16/16 20:59 11/18/16 20:51 45 MG Risperidone (Risperdal Tab) 0.5 mg Q6H PRN PO 11/16/16 19:45 12/16/16 19:44 Fludrocortisone Acetate 0.1 mg 0.1 mg QAM PO 11/19/16 09:00 12/19/16 08:59 11/19/16 07:46 0.1 MG Lactated Ringer's (Lr 1000ml) 1,000 ml @ 250 mls/hr Q4H IV 11/19/16 06:45 11/19/16 10:44 11/19/16 07:46 250 MLS/HR
--- NOTE | 2016-11-19 10:08 | Psychiatric Progress Notes ---
Psychiatric Progress Note Date of Service November 19, 2016. Notes ID: Patient reviewed with liaison nurse. Initial consult completed on 11/16 by ALEX Carrillo. 76 yo with dementia, Zoloft and Remeron continued, lower dose Risperdal given fall/low BP, Aricept d/c by Neuro CC: sleeping HPI: , per 1-on-1 cooperative with care but sleeps "like a Teenager" til about noon ROS: patient unable to complete MSE: exam limited due to sedation, reportedly bradykinetic at baseline, resting comfortably, no abnormal motor movements Vital Signs Past 12 Hours Date Time Temp Pulse Resp B/P Pulse Ox O2 Delivery O2 Flow Rate FiO2 11/19/16 08:00 Room Air 11/19/16 07:39 36.8 52 16 114/70 94 Room Air 11/19/16 06:05 36.3 52 14 104/64 95 Room Air 11/19/16 00:05 Room Air 11/18/16 23:16 36.8 71 14 90/54 93 Room Air Medications (Trade) Dose Ordered Sig/Evangelina Route Start Time Stop Time Status Last Admin Dose Admin Fludrocortisone Acetate 0.1 mg 0.1 mg QAM PO 11/19/16 09:00 12/19/16 08:59 11/19/16 07:46 0.1 MG Lactated Ringer's (Lr 1000ml) 1,000 ml @ 250 mls/hr Q4H IV 11/19/16 06:45 11/19/16 10:44 11/19/16 07:46 250 MLS/HR Imp: dementia with bustos Plan: on Flourinef, remains hypotensive with P in 50s at times will attempt Remeron dosing earlier in evening as seeming to peak in am, combo with Neurontin may also be contributing falls precautions no changes to Zoloft or Risperdal at this time
[2016-11-19 15:08] VITALS: BP_SYST 75; BP_SYST 89; BP_DIAS 43; BP_DIAS 52; PULSE 52; TEMP 36.5; O2SAT 95
[2016-11-19 16:00] VITALS: O2SAT 95
[2016-11-19] MEDS: MIRTAZAPINE TAB 15 MG TAB PO SCH (17:30)
[2016-11-19] MEDS: GABAPENTIN 300 MG CAP PO SCH (20:25)
[2016-11-19 22:29] VITALS: BP 132/71; PULSE 80; TEMP 36.7; O2SAT 93
[2016-11-20] MEDS: PANTOprazole SOD 40 MG TAB PO SCH (05:29)
[2016-11-20 07:06] VITALS: BP 92/55; PULSE 53; TEMP 36.4; O2SAT 94
[2016-11-20 07:10] LABS: BUN/CREATININE RATIO 27.7 (10-20); CALCIUM 8.3 mg/dl (8.5-10.1); CREATININE 0.81 mg/dl (0.60-1.40); POTASSIUM 3.8 mmol/L (3.5-5.1)
[2016-11-20] MEDS: RANITIDINE HCL 150 MG TAB PO SCH ×2 (08:18→20:19)
[2016-11-20] MEDS: RISPERIDONE 0.5 MG TAB PO SCH ×2 (08:18→20:19)
[2016-11-20] MEDS: MEMANTINE 10 MG TAB PO SCH ×2 (08:18→20:19)
[2016-11-20] MEDS: SERTRALINE HCL 50 MG TAB PO SCH ×2 (08:18→16:16)
[2016-11-20] MEDS: FLUDROCORTISONE ACETATE 0.1 MG TAB PO SCH (08:18)
[2016-11-20] MEDS: ATORVASTATIN 40 MG TAB PO SCH (08:18)
[2016-11-20 15:01] VITALS: BP 104/66
[2016-11-20 15:03] VITALS: BP 104/66; PULSE 64; TEMP 36.1; O2SAT 97
[2016-11-20 16:00] VITALS: O2SAT 97
[2016-11-20] MEDS: MIRTAZAPINE TAB 15 MG TAB PO SCH (18:15)
--- NOTE | 2016-11-20 18:31 | Progress Note ---
Medicine Progress Note Date & Time of Visit: November 20, 2016 at 10:30 . Subjective Somnolent this morning, but arousable. Pleasantly confused. Minimally verbal, but denies any problems. Better PO fluid intake with encouragement. . Objective Last 8 Hrs Date Time Temp Pulse Resp B/P Pulse Ox O2 Delivery O2 Flow Rate FiO2 11/20/16 16:00 97 Room Air 11/20/16 15:03 36.1 64 18 104/66 97 Room Air Physical Exam: General- no distress Lungs- clear Heart- RRR Abdomen- + BS, soft, nontender Extremities- no pretibial edema or calf tenderness Neuro- somnolent, arousable . Laboratory Results: Last 24 Hours Test 11/20/16 06:12 Sodium Level 143 mmol/L Potassium Level 3.8 mmol/L Chloride Level 107 mmol/L Carbon Dioxide Level 28 mmol/L Anion Gap 8.0 mmol/L Blood Urea Nitrogen 22 mg/dl Creatinine 0.81 mg/dl Est Creatinine Clear Calc Drug Dose 60.1 ml/min Estimated GFR () 100.8 Estimated GFR (Non- 86.9 BUN/Creatinine Ratio 27.7 Random Glucose 93 mg/dl Calcium Level 8.3 mg/dl Assessment & Plan FALL No acute process per CT / MRI brain. Possibly due to dehydration / orthostasis. Meds may be contributing factor. DEMENTIA History of dementia with behavioral disturbances. Spouse reports that neuropsych testing consistent with Alzheimer's disease. MRI demonstrates small vessel ischemic changes- may have component of vascular dementia. Has features consistent with Lewy body dementia- hallucinations, possible REM sleep disorder, Parkinsonian features possibly worsened by antipsychotics. Behavior improved with current meds, but polypharmacology may be contributing to falls. Some meds (risperidone and mirtazapine) were held due to confusion and falls, and then resumed. Psych consulted to assist with medications. Risperidone dose decreased due to Parkinsonian features. Best to avoid benzodiazepines if possible due to dementia. Nonpharmacologic measures and 1:1 staffing as needed. DEHYDRATION Dehydration + associated orthostasis. Has received intermittent IV fluids. BUN 22, creatinine 0.81 today. Encourage PO fluid intake. HYPOTENSION BP's as low as 77/52. Intermittent hypotension in supine position; orthostatic hypotension as well. Suspect that hypotension due to volume depletion. Orthostatic hypotension due to combination of volume status + autonomic neuropathy. Maintain fluid status as discussed above. Midodrine contraindicated due to bradycardia. Started trial of fludrocortisone. BP this morning 92/55. Follow. SKIN CONCERNS (present on admission) Erythema with blanching noted on right buttock. Wound Care Nursing consulted. Continue local care, repositioning. VTE PROPHYLAXIS No anticoagulants due to head injury. SCD's. Ambulate with assistance. DISPOSITION Spouse committed to ongoing care at home, but is wondering if inpatient rehab may be helpful before returning home. Case Management consulted. Family Medicine follow-up with Dr. Gloria. Psychiatry follow-up with Dr. Quinn. . Current Inpatient Medications: Current Inpatient Medications Medications (Trade) Dose Ordered Sig/Evangelina Route Start Time Stop Time Status Last Admin Dose Admin Acetaminophen (Tylenol Tab) 650 mg Q4H PRN PO 11/13/16 17:15 12/13/16 17:14 Atorvastatin Calcium (Lipitor Tab) 40 mg DAILY PO 11/14/16 09:00 12/14/16 08:59 11/20/16 08:18 40 MG Gabapentin (Neurontin Cap) 600 mg HS PO 11/13/16 21:00 12/13/16 20:59 11/19/16 20:25 600 MG Memantine (Namenda Tab) 10 mg BID PO 11/13/16 21:00 12/13/16 20:59 11/20/16 08:18 10 MG Ranitidine HCl (zANTac TAB) 300 mg BID PO 11/13/16 21:00 12/13/16 20:59 11/20/16 08:18 300 MG Sertraline HCl (Zoloft Tab) 25 mg DAILY@1600 PO 11/14/16 16:00 12/14/16 15:59 11/20/16 16:16 25 MG Sertraline HCl (Zoloft Tab) 50 mg QAM PO 11/14/16 09:00 12/14/16 08:59 11/20/16 08:18 50 MG Pantoprazole Sodium (Protonix Tab) 40 mg DAILYBB PO 11/14/16 06:30 12/14/16 06:59 11/20/16 05:29 40 MG Miscellaneous (Iv Fluids Completed) 1 ea PRN PRN N/A 11/14/16 01:00 11/14/17 00:59 11/17/16 15:57 1 EA Risperidone (Risperdal Tab) 0.5 mg BID PO 11/15/16 21:00 12/15/16 20:59 11/20/16 08:18 0.5 MG Haloperidol Lactate (Haldol Inj) 0.5 mg Q30M PRN IM 11/15/16 19:15 12/15/16 19:14 Risperidone (Risperdal Tab) 0.5 mg Q6H PRN PO 11/16/16 19:45 12/16/16 19:44 Fludrocortisone Acetate (Florinef Tab) 0.1 mg QAM PO 11/19/16 09:00 12/19/16 08:59 11/20/16 08:18 0.1 MG Mirtazapine (Remeron Tab) 45 mg DAILY@1800 PO 11/19/16 18:00 12/19/16 17:59 11/20/16 18:15 45 MG
[2016-11-20] MEDS: GABAPENTIN 300 MG CAP PO SCH (20:19)
[2016-11-21 00:18] VITALS: BP 121/64; PULSE 62; TEMP 36.8; O2SAT 95
[2016-11-21 04:06] VITALS: BP 115/64; PULSE 53; TEMP 36.8; O2SAT 96
[2016-11-21] MEDS: PANTOprazole SOD 40 MG TAB PO SCH (06:01)
[2016-11-21 06:48] VITALS: BP 134/73; PULSE 53; TEMP 36.4; O2SAT 96
[2016-11-21] MEDS: RANITIDINE HCL 150 MG TAB PO SCH ×2 (07:45→20:47)
[2016-11-21] MEDS: ASPIRIN 81 MG ECTAB PO SCH (07:45)
[2016-11-21] MEDS: RISPERIDONE 0.5 MG TAB PO SCH ×2 (07:45→20:58)
[2016-11-21] MEDS: FLUDROCORTISONE ACETATE 0.1 MG TAB PO SCH (07:45)
[2016-11-21] MEDS: ATORVASTATIN 40 MG TAB PO SCH (07:45)
[2016-11-21] MEDS: MEMANTINE 10 MG TAB PO SCH ×2 (07:45→20:48)
[2016-11-21] MEDS: SERTRALINE HCL 50 MG TAB PO SCH ×2 (07:46→16:12)
--- NOTE | 2016-11-21 10:37 | Psychiatric Progress Notes ---
Psychiatric Progress Note Date of Service November 21, 2016. Notes ID: Patient reviewed with liaison nurse. Initial consult completed on 11/16 by ALEX Carrillo. 76 yo with dementia, Zoloft and Remeron continued, lower dose Risperdal given fall/low BP, Aricept d/c by Neuro CC: resting calmly HPI: more awake this am, denies depression, initially stated he had bustos but was then unable to describe ROS: patient unable to complete MSE: alert, calm, no abnormal motor movements, affect blunted but less slowing Imp: dementia with bustos Plan: no changes to Zoloft or Risperdal at this time, shifting Remeron earlier seems to have helped am sedation but does wax/wane psychiatrically stable for discharge to appropriate level of nursing care
[2016-11-21 15:09] VITALS: BP 76/51; PULSE 66; TEMP 36.5; O2SAT 94
[2016-11-21 15:26] VITALS: BP 77/50; PULSE 58
[2016-11-21] MEDS: MIRTAZAPINE TAB 15 MG TAB PO SCH (18:14)
[2016-11-21] MEDS: RISPERIDONE 0.5 MG TAB PO PRN (19:08)
[2016-11-21] MEDS: GABAPENTIN 300 MG CAP PO SCH (20:47)
--- NOTE | 2016-11-21 23:28 | Progress Note ---
Medicine Progress Note Date & Time of Visit: November 21, 2016 at 09:40 . Subjective Pleasantly confused. No complaints. Minimally verbal. No new problems reported by staff. . Objective Last 8 Hrs Date Time Temp Pulse Resp B/P Pulse Ox O2 Delivery O2 Flow Rate FiO2 11/21/16 16:00 Room Air 11/21/16 15:26 58 77/50 Physical Exam: General- no distress Lungs- clear Heart- RRR Abdomen- + BS, soft, nontender Extremities- no pretibial edema or calf tenderness Neuro- pleasantly confused . Assessment & Plan FALL No acute process per CT / MRI brain. Possibly due to dehydration / orthostasis. Meds may be contributing factor. DEMENTIA History of dementia with behavioral disturbances. Spouse reports that neuropsych testing consistent with Alzheimer's disease. MRI demonstrates small vessel ischemic changes- may have component of vascular dementia. Started on aspirin. Has features consistent with Lewy body dementia- hallucinations, possible REM sleep disorder, Parkinsonian features possibly worsened by antipsychotics. Behavior improved with current meds, but polypharmacology may be contributing to falls. Some meds (risperidone and mirtazapine) were held due to confusion and falls, and then resumed. Psych consulted to assist with medications. Risperidone dose decreased due to Parkinsonian features. Best to avoid benzodiazepines if possible due to dementia. DEHYDRATION Dehydration + associated orthostasis. Has received intermittent IV fluids. Feeding tube unlikely to be of benefit and spouse does not wish to pursue. Best not to continue IV fluids indefinitely. Encourage PO fluid intake. HYPOTENSION BP's as low as 77/52. Intermittent hypotension in supine position; orthostatic hypotension as well. Suspect that hypotension due to volume depletion. Orthostatic hypotension due to combination of volume status + autonomic neuropathy. Maintain fluid status as discussed above. Midodrine contraindicated due to bradycardia. Started trial of fludrocortisone. BP's continue to fluctuate. Follow. SKIN CONCERNS (present on admission) Erythema with blanching noted on right buttock. Wound Care Nursing consulted. Continue local care, repositioning. VTE PROPHYLAXIS No anticoagulants due to head injury. SCD's. Ambulate with assistance. DISPOSITION Spouse committed to ongoing care at home, but is wondering if inpatient rehab may be helpful before returning home. If he doesn't qualify for inpatient rehab, may be appropriate to consider hospice at home given his advanced dementia and poor long-term prognosis. Case Management consulted. Family Medicine follow-up with Dr. Gloria. Psychiatry follow-up with Dr. Quinn. . Consultants: Psychiatry Neurology . Procedures: CT brain CT cervical spine MRI brain carotid duplex echo EEG IV fluids . Current Inpatient Medications: Current Inpatient Medications Medications (Trade) Dose Ordered Sig/Evangelina Route Start Time Stop Time Status Last Admin Dose Admin Acetaminophen (Tylenol Tab) 650 mg Q4H PRN PO 11/13/16 17:15 12/13/16 17:14 Atorvastatin Calcium (Lipitor Tab) 40 mg DAILY PO 11/14/16 09:00 12/14/16 08:59 11/21/16 07:45 40 MG Gabapentin (Neurontin Cap) 600 mg HS PO 11/13/16 21:00 12/13/16 20:59 11/21/16 20:47 600 MG Memantine (Namenda Tab) 10 mg BID PO 11/13/16 21:00 12/13/16 20:59 11/21/16 20:48 10 MG Ranitidine HCl (zANTac TAB) 300 mg BID PO 11/13/16 21:00 12/13/16 20:59 11/21/16 20:47 300 MG Sertraline HCl (Zoloft Tab) 25 mg DAILY@1600 PO 11/14/16 16:00 12/14/16 15:59 11/21/16 16:12 25 MG Sertraline HCl (Zoloft Tab) 50 mg QAM PO 11/14/16 09:00 12/14/16 08:59 11/21/16 07:46 50 MG Pantoprazole Sodium (Protonix Tab) 40 mg DAILYBB PO 11/14/16 06:30 12/14/16 06:59 11/21/16 06:01 40 MG Miscellaneous (Iv Fluids Completed) 1 ea PRN PRN N/A 11/14/16 01:00 11/14/17 00:59 11/17/16 15:57 1 EA Risperidone (Risperdal Tab) 0.5 mg BID PO 11/15/16 21:00 12/15/16 20:59 11/21/16 07:45 0.5 MG Haloperidol Lactate (Haldol Inj) 0.5 mg Q30M PRN IM 11/15/16 19:15 12/15/16 19:14 Risperidone (Risperdal Tab) 0.5 mg Q6H PRN PO 11/16/16 19:45 12/16/16 19:44 11/21/16 19:08 0.5 MG Fludrocortisone Acetate (Florinef Tab) 0.1 mg QAM PO 11/19/16 09:00 12/19/16 08:59 11/21/16 07:45 0.1 MG Mirtazapine (Remeron Tab) 45 mg DAILY@1800 PO 11/19/16 18:00 12/19/16 17:59 11/21/16 18:14 45 MG Aspirin (Ecotrin Tab) 81 mg QAM PO 11/21/16 09:00 12/21/16 08:59 11/21/16 07:45 81 MG
[2016-11-21 23:51] VITALS: BP 101/58; PULSE 67; TEMP 36.9; O2SAT 95
[2016-11-22 06:58] VITALS: BP 92/60; PULSE 58; TEMP 36.6; O2SAT 96
[2016-11-22] MEDS: RANITIDINE HCL 150 MG TAB PO SCH ×2 (07:44→20:13)
[2016-11-22] MEDS: SERTRALINE HCL 50 MG TAB PO SCH ×2 (07:44→16:36)
[2016-11-22] MEDS: MEMANTINE 10 MG TAB PO SCH ×2 (07:45→20:15)
[2016-11-22] MEDS: ASPIRIN 81 MG ECTAB PO SCH (07:45)
[2016-11-22] MEDS: PANTOprazole SOD 40 MG TAB PO SCH (07:45)
[2016-11-22] MEDS: RISPERIDONE 0.5 MG TAB PO SCH ×2 (07:45→20:13)
[2016-11-22] MEDS: ATORVASTATIN 40 MG TAB PO SCH (07:45)
[2016-11-22] MEDS: FLUDROCORTISONE ACETATE 0.1 MG TAB PO SCH (07:46)
--- NOTE | 2016-11-22 08:47 | Progress Note ---
Medicine Progress Note Date & Time of Visit: November 22, 2016 at 07:50 . Subjective More alert and conversant this morning. Offers no complaints. Denies headache, lightheadedness, CP, cough, SOB, nausea, vomiting. BP's continue to fluctuate. Last reported bowel movement yesterday. . Objective Last 8 Hrs Date Time Temp Pulse Resp B/P Pulse Ox O2 Delivery O2 Flow Rate FiO2 11/22/16 06:58 36.6 58 20 92/60 96 Room Air Physical Exam: General- no distress Lungs- clear Heart- RRR Abdomen- + BS, soft, nontender Extremities- no pretibial edema or calf tenderness Neuro- more alert, pleasantly confused . Assessment & Plan FALL No acute process per CT / MRI brain. Possibly due to dehydration / orthostasis. Meds may be contributing factor. DEMENTIA History of dementia with behavioral disturbances. Spouse reports that neuropsych testing consistent with Alzheimer's disease. MRI demonstrates small vessel ischemic changes- may have component of vascular dementia. Started on aspirin. Has features consistent with Lewy body dementia- hallucinations, possible REM sleep disorder, Parkinsonian features possibly worsened by antipsychotics. Behavior improved with current meds, but polypharmacology may be contributing to falls. Some meds (risperidone and mirtazapine) were held due to confusion and falls, and then resumed. Psych consulted to assist with medications. Risperidone dose decreased due to Parkinsonian features. Best to avoid benzodiazepines if possible due to dementia. DEHYDRATION Dehydration + associated orthostasis. Has received intermittent IV fluids. Feeding tube unlikely to be of benefit and spouse does not wish to pursue. Repeating IV fluid resuscitation will just offer temporary benefit. Encourage PO fluid intake. HYPOTENSION BP's as low as 75/43. Intermittent hypotension in supine position; orthostatic hypotension as well. Suspect that hypotension due to volume depletion. Orthostatic hypotension due to combination of volume status + autonomic neuropathy. Maintain fluid status as discussed above. Midodrine contraindicated due to bradycardia. Started trial of fludrocortisone. BP's continue to fluctuate. Patient denies lightheadedness. Follow. SKIN CONCERNS (present on admission) Erythema with blanching noted on right buttock. Wound Care Nursing consulted. Continue local care, repositioning. VTE PROPHYLAXIS No anticoagulants initially due to head injury. SCD's. Risk of ICH from head injury low at this time; will add SQ heparin. Ambulate with assistance. DISPOSITION Case Management consulted. Spouse committed to ongoing care at home, but is wondering if inpatient rehab may be helpful before returning home. Skilled care may be an option if he does not qualify for inpatient rehab. Alternatively, may be appropriate to consider hospice at home given his advanced dementia and poor long-term prognosis. Family Medicine follow-up with Dr. Gloria. Psychiatry follow-up with Dr. Quinn. . Consultants: Psychiatry Neurology . Procedures: CT brain CT cervical spine MRI brain carotid duplex echo EEG IV fluids . Current Inpatient Medications: Current Inpatient Medications Medications (Trade) Dose Ordered Sig/Evangelina Route Start Time Stop Time Status Last Admin Dose Admin Acetaminophen (Tylenol Tab) 650 mg Q4H PRN PO 11/13/16 17:15 12/13/16 17:14 Atorvastatin Calcium (Lipitor Tab) 40 mg DAILY PO 11/14/16 09:00 12/14/16 08:59 11/22/16 07:45 40 MG Gabapentin (Neurontin Cap) 600 mg HS PO 11/13/16 21:00 12/13/16 20:59 11/21/16 20:47 600 MG Memantine (Namenda Tab) 10 mg BID PO 11/13/16 21:00 12/13/16 20:59 11/22/16 07:45 10 MG Ranitidine HCl (zANTac TAB) 300 mg BID PO 11/13/16 21:00 12/13/16 20:59 11/22/16 07:44 300 MG Sertraline HCl (Zoloft Tab) 25 mg DAILY@1600 PO 11/14/16 16:00 12/14/16 15:59 11/21/16 16:12 25 MG Sertraline HCl (Zoloft Tab) 50 mg QAM PO 11/14/16 09:00 12/14/16 08:59 11/22/16 07:44 50 MG Pantoprazole Sodium (Protonix Tab) 40 mg DAILYBB PO 11/14/16 06:30 12/14/16 06:59 11/22/16 07:45 40 MG Miscellaneous (Iv Fluids Completed) 1 ea PRN PRN N/A 11/14/16 01:00 11/14/17 00:59 11/17/16 15:57 1 EA Risperidone (Risperdal Tab) 0.5 mg BID PO 11/15/16 21:00 12/15/16 20:59 11/22/16 07:45 0.5 MG Haloperidol Lactate (Haldol Inj) 0.5 mg Q30M PRN IM 11/15/16 19:15 12/15/16 19:14 Risperidone (Risperdal Tab) 0.5 mg Q6H PRN PO 11/16/16 19:45 12/16/16 19:44 11/21/16 19:08 0.5 MG Fludrocortisone Acetate (Florinef Tab) 0.1 mg QAM PO 11/19/16 09:00 12/19/16 08:59 11/22/16 07:46 0.1 MG Mirtazapine (Remeron Tab) 45 mg DAILY@1800 PO 11/19/16 18:00 12/19/16 17:59 11/21/16 18:14 45 MG Aspirin (Ecotrin Tab) 81 mg QAM PO 11/21/16 09:00 12/21/16 08:59 11/22/16 07:45 81 MG
[2016-11-22] MEDS: HEPARIN SOD 5000 UNIT/0.5 ML CARP SQ SCH ×2 (11:59→21:51)
[2016-11-22 15:02] VITALS: BP 88/58; PULSE 80; TEMP 36.3; O2SAT 95
[2016-11-22] MEDS: RISPERIDONE 0.5 MG TAB PO PRN ×2 (15:13→21:45)
[2016-11-22] MEDS: MIRTAZAPINE TAB 15 MG TAB PO SCH (17:26)
[2016-11-22] MEDS: GABAPENTIN 300 MG CAP PO SCH (20:13)
[2016-11-22 20:32] VITALS: O2SAT 93
[2016-11-22 23:45] VITALS: BP 103/58; PULSE 64; TEMP 36.7; O2SAT 95
[2016-11-23] MEDS: PANTOprazole SOD 40 MG TAB PO SCH (06:18)
[2016-11-23 07:14] VITALS: BP_SYST 84; BP_SYST 89; BP_DIAS 50; BP_DIAS 53; PULSE 57; TEMP 36.1; O2SAT 94
[2016-11-23] MEDS: SERTRALINE HCL 50 MG TAB PO SCH ×2 (08:12→15:47)
[2016-11-23] MEDS: MEMANTINE 10 MG TAB PO SCH ×2 (08:12→20:23)
[2016-11-23] MEDS: RANITIDINE HCL 150 MG TAB PO SCH ×2 (08:13→20:22)
[2016-11-23] MEDS: FLUDROCORTISONE ACETATE 0.1 MG TAB PO SCH (08:13)
[2016-11-23] MEDS: ASPIRIN 81 MG ECTAB PO SCH (08:14)
[2016-11-23] MEDS: ATORVASTATIN 40 MG TAB PO SCH (08:14)
[2016-11-23] MEDS: RISPERIDONE 0.5 MG TAB PO SCH ×2 (08:15→20:22)
[2016-11-23] MEDS: HEPARIN SOD 5000 UNIT/0.5 ML CARP SQ SCH ×2 (09:17→20:26)
--- NOTE | 2016-11-23 14:32 | Progress Note ---
Internal Med Progress Note Date of Service: November 23, 2016. Provider Documentation: SUBJECTIVE: Patient is seen and examined at bedside. Seemed to be calm and comfortable. Offers no complaints. Family at bedside. Denies chest pain, SOB, abd pain, cough, nausea, vomiting. OBJECTIVE: Vital Signs-as noted below Physical Exam: Vitals signs as noted above General Appearance:Moderately built and nourished, no apparent distress Head: normocephalic, Atraumatic Eyes: normal inspection, EOMI, PERRL Neck: supple, Trachea midline Respiratory/Chest: Normal breath sounds, CTA Cardiovascular: S1, S2, No murmur Abdomen/GI:Soft, Non tender, Bowel sounds present Extremities/Musculoskelatal:normal inspection, no edema Neurologic/Psych: + Dementia, grossly no focal neurological deficits Skin: normal color, warm Lab data as noted below. ASSESSMENT & PLAN: FALL CT/MRI Brain: No acute process Likely secondary to meds, orthostasis PT/OT DEMENTIA H/O dementia with behavioral disturbances. Spouse reported that neuropsych testing is consistent with Alzheimer's dementia Family history of Alzheimer's dementia present MRI:No acute process. 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 Aricept discontinued by Neurology as medication is not effective Has some features consistent with Lewy body dementia: hallucinations, possible REM sleep disorder, Parkinsonian features possibly worsened by antipsychotics Risperidone and mirtazapine were held due to confusion and falls, and later resumed EEG: No seizure activity Appreciate Neurology/Psych input Risperidone dose decreased due to Parkinsonian features. Avoid benzodiazepines if possible Continue current meds DEHYDRATION Dehydration and associated orthostasis. S/P intermittent IV fluids. Feeding tube unlikely to be of benefit and spouse does not wish to pursue. Encourage PO fluid intake Will advance diet as tolerated HYPOTENSION BP labile Likely secondary to orthostatic hypotension and decreased PO intake Could have a component of autonomic neuropathy. Midodrine contraindicated due to bradycardia. Continue trial of fludrocortisone. Liberalize salt intake Encourage increased PO fluid intake Monitor SKIN CONCERNS (present on admission) Erythema with blanching noted on right buttock. Wound Care Nursing consulted. Continue local care, repositioning. DVT PX: SQ heparin SCDs Ambulate with assistance. DISPOSITION Case Management consulted. Awaiting for placement Family Medicine follow-up with Dr. Gloria. Psychiatry follow-up with Dr. Quinn. . Consultants: Psychiatry Neurology Vital Signs: Date Time Temp Pulse Resp B/P Pulse Ox O2 Delivery O2 Flow Rate FiO2 11/23/16 07:52 Room Air 11/23/16 07:14 36.1 57 20 84/53 94 Room Air 89/50 11/23/16 00:00 Room Air 11/22/16 23:45 36.7 64 18 103/58 95 Room Air 11/22/16 20:32 93 Room Air 11/22/16 15:48 Room Air
[2016-11-23] MEDS: RISPERIDONE 0.5 MG TAB PO PRN (15:11)
[2016-11-23 15:34] VITALS: BP 107/67; PULSE 62; TEMP 36.4; O2SAT 96
[2016-11-23] MEDS: MIRTAZAPINE TAB 15 MG TAB PO SCH (17:30)
[2016-11-23] MEDS: GABAPENTIN 300 MG CAP PO SCH (20:22)
[2016-11-23 23:40] VITALS: BP 100/54; PULSE 66; TEMP 36.7; O2SAT 94
[2016-11-24 03:30] VITALS: BP 98/57; PULSE 62; TEMP 36.7; O2SAT 95
[2016-11-24] MEDS: PANTOprazole SOD 40 MG TAB PO SCH (06:46)
[2016-11-24 07:09] LABS: BUN/CREATININE RATIO 26.3 (10-20); CREATININE 0.96 mg/dl (0.60-1.40); POTASSIUM 3.9 mmol/L (3.5-5.1)
[2016-11-24 07:10] LABS: CALCIUM 8.3 mg/dl (8.5-10.1)
[2016-11-24 07:51] VITALS: BP 129/71; PULSE 56; TEMP 36.5; O2SAT 93
[2016-11-24] MEDS: ASPIRIN 81 MG ECTAB PO SCH (09:42)
[2016-11-24] MEDS: SERTRALINE HCL 50 MG TAB PO SCH ×2 (09:42→16:29)
[2016-11-24] MEDS: RANITIDINE HCL 150 MG TAB PO SCH (09:42)
[2016-11-24] MEDS: ATORVASTATIN 40 MG TAB PO SCH (09:42)
[2016-11-24] MEDS: FLUDROCORTISONE ACETATE 0.1 MG TAB PO SCH (09:44)
[2016-11-24] MEDS: HEPARIN SOD 5000 UNIT/0.5 ML CARP SQ SCH (09:46)
[2016-11-24] MEDS: RISPERIDONE 0.5 MG TAB PO SCH (10:32)
[2016-11-24] MEDS: MEMANTINE 10 MG TAB PO SCH (10:32)
--- NOTE | 2016-11-24 11:35 | Progress Note ---
Internal Med Progress Note Date of Service: November 24, 2016. Provider Documentation: SUBJECTIVE: Patient is seen and examined at bedside. Doing well this morning. BP is stable. Offers no complaints. Denies chest pain, SOB, abd pain, cough, nausea, vomiting. OBJECTIVE: Vital Signs-as noted below Physical Exam: Vitals signs as noted above General Appearance:Moderately built and nourished, no apparent distress Head: normocephalic, Atraumatic Eyes: normal inspection, EOMI, PERRL Neck: supple, Trachea midline Respiratory/Chest: Normal breath sounds, CTA Cardiovascular: S1, S2, No murmur Abdomen/GI:Soft, Non tender, Bowel sounds present Extremities/Musculoskelatal:normal inspection, no edema Neurologic/Psych: + Dementia, grossly no focal neurological deficits Skin: normal color, warm Lab data as noted below. ASSESSMENT & PLAN: FALL CT/MRI Brain: No acute process Likely secondary to meds, orthostasis PT/OT DEMENTIA H/O dementia with behavioral disturbances. Spouse reported that neuropsych testing is consistent with Alzheimer's dementia Family history of Alzheimer's dementia present MRI:No acute process. 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 Aricept discontinued by Neurology as medication is not effective Has some features consistent with Lewy body dementia: hallucinations, possible REM sleep disorder, Parkinsonian features possibly worsened by antipsychotics Risperidone and mirtazapine were held due to confusion and falls, and later resumed EEG: No seizure activity Appreciate Neurology/Psych input Risperidone dose decreased due to Parkinsonian features. Avoid benzodiazepines if possible Continue current meds DEHYDRATION Dehydration and associated orthostasis. S/P intermittent IV fluids. Feeding tube unlikely to be of benefit and spouse does not wish to pursue. Encourage PO fluid intake Will advance diet as tolerated: Tolerating regular diet HYPOTENSION BP labile but better today Likely secondary to orthostatic hypotension and decreased PO intake Could have a component of autonomic neuropathy. Midodrine contraindicated due to bradycardia. Continue trial of fludrocortisone. Liberalize salt intake Encourage increased PO fluid intake Monitor BP better today SKIN CONCERNS (present on admission) Erythema with blanching noted on right buttock. Wound Care Nursing consulted. Continue local care, repositioning. DVT PX: SQ heparin SCDs Ambulate with assistance. DISPOSITION Case Management consulted. Update today on 11/24/16 Plan to discharge to [facility] Family Medicine follow-up with on 11/29/16 at 1:55pm ( out of office next week) Psychiatry follow-up with in 2-4 weeks as outpatient Consultants: Psychiatry Neurology Vital Signs: Date Time Temp Pulse Resp B/P Pulse Ox O2 Delivery O2 Flow Rate FiO2 11/24/16 08:00 Room Air 11/24/16 07:51 36.5 56 18 129/71 93 Room Air 11/24/16 03:30 36.7 62 18 98/57 95 Room Air 11/24/16 00:00 Room Air 11/23/16 23:40 36.7 66 16 100/54 94 Room Air 11/23/16 16:00 Room Air 11/23/16 15:34 36.4 62 18 107/67 96 Room Air Lab Results: Results Past 24 Hours Test 11/24/16 06:12 Range/Units Sodium Level 142 136-145 mmol/L Potassium Level 3.9 3.5-5.1 mmol/L Chloride Level 106 98-107 mmol/L Carbon Dioxide Level 28 21-32 mmol/L Anion Gap 8.0 3-11 mmol/L Blood Urea Nitrogen 25 7-18 mg/dl Creatinine 0.96 0.60-1.40 mg/dl Est Creatinine Clear Calc Drug Dose 53.6 ml/min Estimated GFR () 89.3 Estimated GFR (Non- 77.0 BUN/Creatinine Ratio 26.3 10-20 Random Glucose 86 70-99 mg/dl Calcium Level 8.3 8.5-10.1 mg/dl
[2016-11-24] MEDS ORDERED: RISP0.5T4 PO (11:42)
[2016-11-24] MEDS ORDERED: MIRT45TA PO (11:42)
[2016-11-24] MEDS ORDERED: FLUD0.1T PO (11:42)
[2016-11-24] MEDS ORDERED: ASPEC81 PO (11:42)
--- NOTE | 2016-11-24 11:47 | Discharge Summary ---
Discharge Summary Date of Service November 24, 2016. Discharge Summary Admission Date: November 18, 2016 at 15:56 Discharge Date: November 24, 2016 Discharge Disposition: assisted facility Principal Diagnosis: Fall, Dementia, Hypotension Procedures: CT head: 1. No acute intracranial findings. Stable ventricular dilatation, likely due to atrophy. Normal pressure hydrocephalus is considered less likely. 2. No calvarial fracture. CT cervical spine: 1. No acute cervical spine fracture. 2. Study compromised due to difficulty positioning. 3. Moderate multilevel degenerative disc disease and severe multilevel facet arthrosis. Carotid USD: No evidence for a hemodynamically significant stenosis. MRI brain: No acute intracranial abnormality. ECHO: * No significant vavular pathology. * The left ventricle is normal in size. * Left ventricular systolic function is normal. * Ejection Fraction = 55-60%. * The right ventricular systolic function is normal. * The left atrial size is normal. * Right atrial size is normal. EEG: This EEG is mildly diffusely abnormal in a highly nonspecific fashion without lateralizing features and without accompanying potentially epileptogenic patterns. Certainly an advanced dementia or after a head injury this type of EEG may not necessarily be "abnormal". Consultations: Psychiatry Neurology Pending Studies/Follow-Up: Family Medicine follow-up with on 11/29/16 at 1:55pm ( out of office next week) Psychiatry follow-up with in 2-4 weeks as outpatient AVOID USE OF LORAZEPAM IF POSSIBLE Medication Reconciliation New Medications: Aspirin (Aspirin EC Low Dose) 81 Mg Ectab 81 MG PO QAM for 30 Days, #30 Fludrocortisone Acetate (Fludrocortisone Acetate) 0.1 Mg Tab 0.1 MG PO QAM for 30 Days, #30 TAB Risperidone (Risperidone) 0.5 Mg Tab 0.5 MG PO Q6H PRN for severe agitation for 10 Days, #40 TAB Changed Medications: Lorazepam (Ativan) 0.5 Mg Tab 0.5 MG PO Q6 PRN for Anxiety for 3 Days, #12 TAB (Changed from: 0.5-1 MG) Mirtazapine (Remeron) 45 Mg Tab 45 MG PO DAILY@1800 for 30 Days, #30 TAB (Changed from: HS) Continued Medications: Atorvastatin (Lipitor) 40 Mg Tab 40 MG PO DAILY, TAB Gabapentin (Neurontin) 300 Mg Cap 600 MG PO HS, CAP Meclizine Hcl (Meclizine Hcl) 25 Mg Tab 1 TAB PO TID PRN for Dizziness or Vertigo for 30 Days, #90 TAB Melatonin (Melatonin) 3 Mg Tab 6 MG PO HS Memantine (Namenda) 10 Mg Tab 10 MG PO BID, TAB Omeprazole (Prilosec) 20 Mg Capcr 20 MG PO DAILYBB, CAP Ranitidine Hcl (Zantac) 300 Mg Tab 300 MG PO BID, TAB Risperidone (Risperdal) 0.5 Mg Tab 0.5 MG PO BID, TAB TAKE 1 IN AM, 1 @ 1600 Sertraline (Zoloft) 25 Mg Tab 25 MG PO AT 1600, TAB Sertraline (Zoloft) 50 Mg Tab 50 MG PO QAM, TAB Discontinued Medications: Donepezil Hydrochloride (Aricept) 10 Mg Tab 10 MG PO DAILY, TAB Risperidone (Risperdal) 1 Mg Tab 1 MG PO HS, TAB Admission Information HPI (per Admitting provider): Patient seen and examined. 76 year old male with PMHx of Dementia, GERD, HLD presents to the ED with AMS since this morning. Patient lives at home with his and a resident care aide. reports that the patient was found on the floor this morning in his bedroom. They were unsure how long he had been there. At that time the patient was very lethargic and somewhat unresponsive. He would not speak. They noticed dried blood on his head so EMS was called and he was brought to the ED for further evaluation. The patient has a history of multiple falls. At baseline he is pleasantly confused but has some anxiety. He answers most questions yes and no but does have some conversations with people close to him. Family denies any recent fevers, chills, vomiting, diarrhea. Patient is incontinent at baseline. Family keeps patient's medications locked up. In the ED VS were stable, CBC, CMP, Danni were unremarkable, CT head C-spine was negative for acute changes. CXR and UA were stable. He received gentle IVFs. He has become more alert and per family is close to baseline. He will be observed for further workup and treatment. Physical Exam (per Admitting): General Appearance: + pertinent finding (WD/WN 76 year old male lying in bed in NAD with family at bedside ) Head: normocephalic, + evidence of trama (abrasion right parietal area ) Eyes: PERRL, sclerae normal ENT: hearing grossly normal, pharynx normal Neck: supple, no JVD Respiratory/Chest: chest non-tender, lungs clear, normal breath sounds, no respiratory distress, no accessory muscle use Cardiovascular: regular rate, rhythm, no edema, no gallop, no JVD, no murmur , normal peripheral pulses Abdomen/GI: normal bowel sounds, non tender, soft Extremities/Musculoskelatal: no calf tenderness, normal capillary refill, no pedal edema Neurologic/Psych: + pertinent finding (Alert, disoriented, answers some questions yes and no otherwise did not speak, did not follow commands but spontaneously moved all extremities appropriately ) Skin: normal color, warm/dry, no rash Lymphatic: no adenopathy Hospital Course FALL CT/MRI Brain: No acute process Likely secondary to meds, orthostasis PT/OT DEMENTIA H/O dementia with behavioral disturbances. Spouse reported that neuropsych testing is consistent with Alzheimer's dementia Family history of Alzheimer's dementia present MRI:No acute process. 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 Aricept discontinued by Neurology as medication is not effective Has some features consistent with Lewy body dementia: hallucinations, possible REM sleep disorder, Parkinsonian features possibly worsened by antipsychotics Risperidone and mirtazapine were held due to confusion and falls, and later resumed EEG: No seizure activity Appreciate Neurology/Psych input Risperidone dose decreased due to Parkinsonian features. Avoid benzodiazepines if possible Continue current meds DEHYDRATION Dehydration and associated orthostasis. S/P intermittent IV fluids. Feeding tube unlikely to be of benefit and spouse does not wish to pursue. Encourage PO fluid intake Will advance diet as tolerated: Tolerating regular diet HYPOTENSION BP labile but better today Likely secondary to orthostatic hypotension and decreased PO intake Could have a component of autonomic neuropathy. Midodrine contraindicated due to bradycardia. Continue trial of fludrocortisone. Liberalize salt intake Encourage increased PO fluid intake Monitor BP better today SKIN CONCERNS (present on admission) Erythema with blanching noted on right buttock. Wound Care Nursing consulted. Continue local care, repositioning. DVT PX: SQ heparin SCDs Ambulate with assistance. DISPOSITION Case Management consulted. Update today on 11/24/16 Plan to discharge to [facility] Family Medicine follow-up with on 11/29/16 at 1:55pm ( out of office next week) Psychiatry follow-up with in 2-4 weeks as outpatient Consultants: Psychiatry Neurology Total time spent on discharge = 40 minutes This includes examination of the patient, discharge planning, medication reconciliation, and communication with other providers. Discharge Instructions Discharge Instructions Date of Service November 24, 2016. Admission Reason for Admission: Altered Mental Status; Closed Head Injury Discharge Discharge Diagnosis / Problem: Fall, Dementia, Hypotension Discharge Goals Goal(s): Decrease discomfort, Improve function Activity Recommendations Activity Limitations: resume your previous activity Exercise/Sports Limitations: as tolerated . Instructions / Follow-Up Instructions / Follow-Up Family Medicine follow-up with on 11/29/16 at 1:55pm ( out of office next week) Psychiatry follow-up with in 2-4 weeks as outpatient AVOID USE OF LORAZEPAM IF POSSIBLE Current Hospital Diet Patient's current hospital diet: Regular Diet Discharge Diet Recommended Diet: Regular Diet Pending Studies Studies pending at discharge: no Medical Emergencies . Who to Call and When: Medical Emergencies: If at any time you feel your situation is an emergency, please call 911 immediately. . Non-Emergent Contact Non-Emergency issues call your: Primary Care Provider Call Non-Emergent contact if: you have a fever, your pain is unusual for you, you have any medication questions Or for altered mental status or severe agitation . . "Provider Documentation" section prepared by Denzel Urrutia. . VTE Core Measure Inpt VTE Proph given/why not?: Unfractionated heparin SQ
[2016-11-24 12:35] VITALS: O2SAT 93
[2016-11-24 15:28] VITALS: BP 129/71; PULSE 56; TEMP 36.5; O2SAT 93
[2016-11-24 16:24] VITALS: BP 122/68; PULSE 64; TEMP 36.4; O2SAT 94
[2016-11-24] MEDS ORDERED: LORA-741 PO (16:34)
[2016-11-24] MEDS: MIRTAZAPINE TAB 15 MG TAB PO SCH (18:05)
--- NOTE | 2016-12-06 10:52 | EDITING REQUIRED CODING QUERY ---
SUPPORTING DIAGNOSIS NEEDED Franklin PULIDO, A supporting diagnosis is required for the test/procedure performed on this patient in order for us to be reimbursed by the patient's insurance. Please provide a supporting diagnosis for the following test/procedure listed below next to the test name along with your signature. *If there is no additional diagnosis for this patient that would support the following test/procedure please document that below next to the test/procedure. Test(s)/Procedure(s) that require a supporting diagnosis: syncope and collapse * ([id number]) (CAROTID DOP) DUPLEX NECK ARTER DIAGNOSIS: DATE OF SERVICE: 11/14/16 Provider Signature: Date: Thank you Greg Stiles Health Information Management Once completed, please kindly fax back to [phone] For questions please call [phone]
== END 2016-11-24 19:30 | DRG 884 ==
LOC: ENRESERVDT → ENRESERVTM → EDBD 13:54 → C.ED 13:57 → C.MED 17:13 → UNDOADMOB 17:13 → OBSVTOIN 11-18 15:56
PROVIDERS: ADMIT Internal Medicine; ATTEND Internal Medicine
DX: F01.51 Vascular dementia, unspecified severity, with behavioral disturbance (principal); F02.81 Dementia in other diseases classified elsewhere, unspecified severity, with behavioral disturbance; G30.9 Alzheimer's disease, unspecified; S06.0X0A Concussion without loss of consciousness, initial encounter; M81.0 Age-related osteoporosis without current pathological fracture; K21.9 Gastro-esophageal reflux disease without esophagitis; E78.5 Hyperlipidemia, unspecified; E86.0 Dehydration; I95.1 Orthostatic hypotension; G90.9 Disorder of the autonomic nervous system, unspecified; L53.9 Erythematous condition, unspecified; F41.9 Anxiety disorder, unspecified; W19.XXXA Unspecified fall, initial encounter; Y92.013 Bedroom of single-family (private) house as the place of occurrence of the external cause; R00.1 Bradycardia, unspecified; R55 Syncope and collapse